=== PATIENT | female | born 1970 | race Asian ===

== ENCOUNTER 2016-06-03 08:36 | Emergency (ER) | payer MEDICAID ==
[~2016-06-03] VITALS: Ht 162.6 cm; Wt 86.0 kg
[~2016-06-03 08:36] MED LIST: ALBU18HF2 IH; ASPI-1035 PO; ATOR10TA PO; CARV25TA47 PO; CLON0.1T PO; DIVA-18 PO; FURO-151 PO; HYDR-4134 PO; HYDR-523 PO; KEPP500 PO; LISI-604 PO; LORA-249 PO; Levothyroxine Sodium PO; NIFE60TA64 PO; NITR0.4T3 SL; POLY17PO3 PO; TRAZ-132 PO; [UNRECOGNIZED DRUG - OTHER] PO
[2016-06-03] MEDS ORDERED: SODIUM CHLORIDE 0.9% 1,000 ML IV ONE (09:39)
[2016-06-03] MEDS ORDERED: MORPHINE SULFATE 4 MG/ML CPJ (NOT FOR IM USE) IV STA (09:39)
[2016-06-03] MEDS ORDERED: ONDANSETRON HCL 4MG/2ML VIAL IV STA (09:39)
[2016-06-03] MEDS ORDERED: CEPHALEXIN 500MG CAPSULE PO ONE (09:45)
[2016-06-03] MEDS ORDERED: KETOROLAC 30MG/ML VIAL IV ONE (09:45)
[2016-06-03] MEDS ORDERED: DEXAMETHASONE 10MG/ML 1ML VIAL IV ONE (09:45)
[2016-06-03 10:06] LABS: BASOPHILS % 0.7 % (0.0-2.0); EOSINOPHILS % 0.9 % (0.0-5.0); HEMATOCRIT. 38.9 % (36.0-48.0); HEMOGLOBIN. 12.7 g/dL (12.0-16.0); LYMPHOCYTES % 17.6 % (20.0-50.0); MEAN CORPUSCULAR HEMOGLOBIN 27.2 pg (28.0-32.0); MEAN CORPUSCULAR HGB CONC 32.7 g/dL (31.0-37.0); MEAN CORPUSCULAR VOLUME 83.2 fL (81.0-99.0); MEAN PLATELET VOLUME 7.8 fl (7.4-10.4); MONOCYTES % 6.3 % (2.0-8.0); NEUTROPHILS % 74.5 % (40.0-76.0); PLATELET 251 x1000/uL (130-400); RED BLOOD CELL COUNT 4.67 mill/uL (4.2-5.4); RED CELL DISTRIBUTION WIDTH 14.3 % (11.6-14.6); WHITE BLOOD COUNT 7.5 x1000/uL (4.5-11.0)
[2016-06-03 10:14] VITALS: BP 134/75
[2016-06-03 10:16] LABS: PARTIAL THROMBOPLASTIN TIME 27.1 sec (24.0-34.0); PROTHROMBIN TIME 10.3 sec
[2016-06-03 10:24] LABS: CLARITY URINE CLEAR (CLEAR); COLOR URINE YELLOW (YELLOW); GLUCOSE URINE NEGATIVE (NEGATIVE); KETONES URINE NEGATIVE (NEGATIVE); LEUKOCYTE ESTERASE URINE NEGATIVE (NEGATIVE); NITRITE URINE NEGATIVE (NEGATIVE); OCCULT BLOOD URINE NEGATIVE (NEGATIVE); PROTEIN URINE TRACE (NEGATIVE); SPECIFIC GRAVITY URINE 1.009 (1.005-1.030); UROBILINOGEN URINE 0.2 E.U./dL (0.2-1.0)
[2016-06-03 10:27] LABS: BACTERIA URINE NONE SEEN; CALCIUM PHOSPHATE CRYSTALS UR NONE SEEN /lpf; RBC URINE NONE SEEN /hpf (0-2); SQUAMOUS EPITHELIAL CELL URINE NONE SEEN /lpf (RARE/1+); WAXY CASTS URINE NONE SEEN /lpf; WBC URINE NONE SEEN /hpf (0-2); YEAST URINE NONE SEEN
== END 2016-06-03 10:33 | disposition left against medical advice (07) ==
LOC: ER 08:36
DX: R04.0 Epistaxis (principal); Z79.899 Other long term (current) drug therapy; J44.9 Chronic obstructive pulmonary disease, unspecified; I11.0 Hypertensive heart disease with heart failure; I50.9 Heart failure, unspecified
CPT/HCPCS: 36415; 81001; 85025; 85610; 85730; 99284; Z7610; J1100; J2270; J2405; J7030

== ENCOUNTER 2016-11-20 11:51 | Inpatient (IN) | payer MEDICARE, MEDICAID ==
[~2016-11-20] VITALS: Ht 165.1 cm; Wt 96.8 kg
[~2016-11-20 11:51] MED LIST changes: -ASPI-1035 PO; +ASPI-1159 PO; -NITR0.4T3 SL; +NITR0.4T49 SL
[2016-11-20] MEDS ORDERED: ONDANSETRON HCL 4MG/2ML VIAL IV STA (12:25)
[2016-11-20] MEDS ORDERED: MORPHINE SULFATE 4 MG/ML CPJ (NOT FOR IM USE) IV STA (12:25)
[2016-11-20 13:06] LABS: BASOPHILS % 0.9 % (0.0-2.0); EOSINOPHILS % 2.6 % (0.0-5.0); HEMATOCRIT. 34.9 % (36.0-48.0); HEMOGLOBIN. 11.7 g/dL (12.0-16.0); LYMPHOCYTES % 28.9 % (20.0-50.0); MEAN CORPUSCULAR HEMOGLOBIN 28.2 pg (28.0-32.0); MEAN CORPUSCULAR VOLUME 83.8 fL (81.0-99.0); MEAN PLATELET VOLUME 7.4 fl (7.4-10.4); MONOCYTES % 9.2 % (2.0-8.0); NEUTROPHILS % 58.4 % (40.0-76.0); PLATELET 184 x1000/uL (130-400); RED BLOOD CELL COUNT 4.16 mill/uL (4.2-5.4); RED CELL DISTRIBUTION WIDTH 14.7 % (11.6-14.6)
[2016-11-20 13:12] LABS: INR 0.9; PROTHROMBIN TIME 9.8 sec (9.4-11.6)
[2016-11-20 13:25] LABS: CARBON DIOXIDE 25 mEq/L (21-32); CHLORIDE 109 mEq/L (98-107)
[2016-11-20 13:35] LABS: TROPONIN I 0.63 ng/mL (0.00-0.04)
[2016-11-20] MEDS ORDERED: ASPIRIN 325MG EC TABLET PO ONE (17:30)
[2016-11-20] MEDS ORDERED: GUAIFENESIN 200MG/10ML SUGAR FREE UDC PO PRN (20:00)
[2016-11-20] MEDS ORDERED: HYDRALAZINE 20MG/ML VIAL IV PRN (20:00)
[2016-11-20] MEDS ORDERED: IPRATROPIUM/ALBUTEROL 0.5-3(2.5)MG/3ML NEB INH PRN (20:00)
[2016-11-20] MEDS ORDERED: ONDANSETRON HCL 4MG/2ML VIAL IV PRN (20:00)
[2016-11-20] MEDS ORDERED: MAGNESIUM HYDROXIDE 400MG/5ML 30ML UDC PO PRN (20:00)
[2016-11-20] MEDS ORDERED: MAGNESIUM/ALUMINUM HYDROXIDE/SIMETHICONE 30ML UDC PO PRN (20:00)
[2016-11-20] MEDS ORDERED: ZOLPIDEM TARTRATE 5MG TABLET PO PRN (20:00)
[2016-11-20] MEDS ORDERED: ACETAMINOPHEN 325MG TABLET PO PRN (20:00)
[2016-11-20] MEDS ORDERED: MORPHINE SULFATE 4 MG/ML CPJ (NOT FOR IM USE) IV PRN (20:00)
[2016-11-20] MEDS ORDERED: CLONIDINE 0.2MG TABLET PO PRN (20:00)
[2016-11-20] MEDS ORDERED: HYDROCODONE/ACETAMINOPHEN 5/325MG TABLET PO PRN (20:00)
[2016-11-20] MEDS ORDERED: IPRATROPIUM/ALBUTEROL 0.5-3(2.5)MG/3ML NEB HHN NR (20:00)
[2016-11-20] MEDS ORDERED: LORAZEPAM 0.5MG TABLET PO PRN (20:15)
[2016-11-20] MEDS ORDERED: HYDRALAZINE HCL 25MG TABLET PO NR (20:45)
[2016-11-20] MEDS ORDERED: TRAZODONE HCL 100MG TABLET PO NR (20:45)
[2016-11-20] MEDS ORDERED: LISINOPRIL 20MG TABLET PO NR (20:45)
[2016-11-20] MEDS ORDERED: NIFEDIPINE XL 60MG TAB PO NR (20:45)
[2016-11-20] MEDS ORDERED: CARVEDILOL 25MG TABLET PO NR (20:45)
[2016-11-20] MEDS ORDERED: ATORVASTATIN CALCIUM 40MG TABLET PO NR (20:45)
[2016-11-20] MEDS ORDERED: LEVETIRACETAM 500MG/5ML CUP PO NR (20:45)
[2016-11-20 20:49] LABS: *AMPHETAMINES SCREEN URINE PRESUMTIVE POSITIVE (NEGATIVE); *BARBITURATES SCREEN URINE NEGATIVE (NEGATIVE); *BENZODIAZEPINES SCREEN URINE NEGATIVE (NEGATIVE); *COCAINE SCREEN URINE NEGATIVE (NEGATIVE); CANNABINOID URINE SCREEN NEGATIVE (NEGATIVE); METHADONE URINE SCREEN NEGATIVE (NEGATIVE); OPIATES URINE SCREEN NEGATIVE (NEGATIVE); PHENCYCLIDINE URINE SCREEN NEGATIVE (NEGATIVE)
[2016-11-20 23:35] VITALS: BP 128/98
[2016-11-21] VITALS (7 sets, daily range): BP systolic 102–129; BP diastolic 64–76
[2016-11-21] MEDS: NIFEDIPINE XL 60MG TAB PO SCH ×2 (08:03→20:59)
[2016-11-21] MEDS: LEVETIRACETAM 500MG/5ML CUP PO SCH ×2 (08:03→20:58)
[2016-11-21] MEDS: DIVALPROEX SODIUM 500MG DR TABLET PO SCH ×2 (08:04→16:29)
[2016-11-21] MEDS: ASPIRIN 81MG EC TABLET PO SCH (08:04)
[2016-11-21] MEDS: HYDRALAZINE HCL 50MG TABLET PO SCH ×4 (08:04→20:59)
[2016-11-21] MEDS: LEVOTHYROXINE SODIUM 25MCG TABLET PO SCH (08:05)
[2016-11-21] MEDS: LISINOPRIL 20MG TABLET PO SCH ×2 (08:06→20:59)
[2016-11-21] MEDS ORDERED: CARVEDILOL 25MG TABLET PO SCH (09:00)
[2016-11-21] MEDS ORDERED: TRAZODONE HCL 100MG TABLET PO SCH (21:00)
[2016-11-21] MEDS: SODIUM CHLORIDE 0.9% INJ 3ML FLUSH IVF SCH (21:00)
[2016-11-21] MEDS ORDERED: ATORVASTATIN CALCIUM 40MG TABLET PO SCH (21:00)
[2016-11-22] VITALS: BP 131/80
[2016-11-22 04:00] VITALS: BP 109/58
[2016-11-22] MEDS: SODIUM CHLORIDE 0.9% INJ 3ML FLUSH IVF SCH ×2 (06:01→14:00)
[2016-11-22 08:00] VITALS: BP 115/66
[2016-11-22] MEDS ORDERED: INFLUENZA VIRUS VACCINE 0.5ML SYR IM ONE (08:00)
[2016-11-22] MEDS: HYDRALAZINE HCL 50MG TABLET PO SCH ×2 (08:49→13:00)
[2016-11-22] MEDS: ASPIRIN 81MG EC TABLET PO SCH (08:49)
[2016-11-22] MEDS: LEVOTHYROXINE SODIUM 25MCG TABLET PO SCH (08:50)
[2016-11-22] MEDS: DIVALPROEX SODIUM 500MG DR TABLET PO SCH (08:50)
[2016-11-22] MEDS: NIFEDIPINE XL 60MG TAB PO SCH (08:50)
[2016-11-22] MEDS: LEVETIRACETAM 500MG/5ML CUP PO SCH (08:51)
[2016-11-22] MEDS: LISINOPRIL 20MG TABLET PO SCH (08:51)
[2016-11-22 12:00] VITALS: BP 110/67
== END 2016-11-22 14:20 | disposition home or self-care (01) | DRG 291 ==
LOC: ER 12:03 → 7WST 13:39 → EDBEDREQ 18:49 → ENRESERV 22:29
PROVIDERS: ADMIT Internal Medicine; ATTEND Internal Medicine
DX: I13.0 Hypertensive heart and chronic kidney disease with heart failure and stage 1 through stage 4 chronic kidney disease, or unspecified chronic kidney disease (principal); E43 Unspecified severe protein-calorie malnutrition; R07.89 Other chest pain; I25.2 Old myocardial infarction; I50.9 Heart failure, unspecified; N18.9 Chronic kidney disease, unspecified; D64.9 Anemia, unspecified; E03.9 Hypothyroidism, unspecified; E78.5 Hyperlipidemia, unspecified; F15.90 Other stimulant use, unspecified, uncomplicated; G40.909 Epilepsy, unspecified, not intractable, without status epilepticus; Z82.49 Family history of ischemic heart disease and other diseases of the circulatory system; Z86.73 Personal history of transient ischemic attack (TIA), and cerebral infarction without residual deficits; Z91.14 Patient's other noncompliance with medication regimen
CPT/HCPCS: 36415; 70450; 71010; 80053; 80165; 80305; 81025; 83735; 83880; 84484; 85025; 85610; 93005; 96374; 96375; 99291; J2270; J2405; J7040

== ENCOUNTER 2017-01-12 17:01 | Inpatient (IN) | payer MEDICARE, MEDICAID ==
[~2017-01-12] VITALS: Ht 162.6 cm; Wt 97.1 kg
[2017-01-12] MEDS ORDERED: CLONIDINE 0.1MG TABLET PO ONE (19:15)
[2017-01-12 19:44] LABS: BASOPHILS % 0.7 % (0.0-2.0); EOSINOPHILS % 2.2 % (0.0-5.0); HEMATOCRIT. 36.7 % (36.0-48.0); HEMOGLOBIN. 12.5 g/dL (12.0-16.0); LYMPHOCYTES % 26.6 % (20.0-50.0); MEAN CORPUSCULAR HEMOGLOBIN 28.4 pg (28.0-32.0); MEAN CORPUSCULAR VOLUME 83.6 fL (81.0-99.0); MEAN PLATELET VOLUME 8.2 fl (7.4-10.4); MONOCYTES % 8.4 % (2.0-8.0); NEUTROPHILS % 62.1 % (40.0-76.0); PLATELET 200 x1000/uL (130-400); RED BLOOD CELL COUNT 4.39 mill/uL (4.2-5.4); RED CELL DISTRIBUTION WIDTH 14.4 % (11.6-14.6)
[2017-01-12 19:47] LABS: PROTHROMBIN TIME 10.4 sec (9.4-11.6)
[2017-01-12 19:53] LABS: CARBON DIOXIDE 23 mEq/L (21-32); CHLORIDE 108 mEq/L (98-107)
[2017-01-12 20:54] LABS: *AMPHETAMINES SCREEN URINE NEGATIVE (NEGATIVE); *BARBITURATES SCREEN URINE NEGATIVE (NEGATIVE); *BENZODIAZEPINES SCREEN URINE NEGATIVE (NEGATIVE); *COCAINE SCREEN URINE NEGATIVE (NEGATIVE); CANNABINOID URINE SCREEN NEGATIVE (NEGATIVE); METHADONE URINE SCREEN NEGATIVE (NEGATIVE); OPIATES URINE SCREEN NEGATIVE (NEGATIVE); PHENCYCLIDINE URINE SCREEN NEGATIVE (NEGATIVE)
[2017-01-12] MEDS ORDERED: ACETAMINOPHEN 325MG TABLET PO ONE (21:15)
[2017-01-12] MEDS ORDERED: ASPIRIN 325MG TABLET PO ONE (22:15)
[2017-01-12] MEDS ORDERED: HYDRALAZINE 20MG/ML VIAL IV ONE ×2 (22:45→23:00)
[2017-01-12] MEDS ORDERED: ONDANSETRON HCL 4MG/2ML VIAL IV PRN (23:30)
[2017-01-12] MEDS ORDERED: MAGNESIUM/ALUMINUM HYDROXIDE/SIMETHICONE 30ML UDC PO PRN (23:30)
[2017-01-12] MEDS ORDERED: IPRATROPIUM/ALBUTEROL 0.5-3(2.5)MG/3ML NEB INH PRN (23:30)
[2017-01-12] MEDS ORDERED: HYDROCODONE/ACETAMINOPHEN 5/325MG TABLET PO PRN (23:30)
[2017-01-12] MEDS ORDERED: CLONIDINE 0.1MG TABLET PO PRN (23:30)
[2017-01-13] VITALS (11 sets, daily range): BP systolic 112–191; BP diastolic 68–102
[2017-01-13] MEDS: NIFEDIPINE XL 60MG TAB PO SCH ×2 (03:21→08:06)
[2017-01-13] MEDS: HYDRALAZINE HCL 50MG TABLET PO SCH ×3 (06:20→21:31)
[2017-01-13 06:39] LABS: BASOPHILS % 0.4 % (0.0-2.0); HEMATOCRIT. 35.9 % (36.0-48.0); HEMOGLOBIN. 12.1 g/dL (12.0-16.0); LYMPHOCYTES % 10.3 % (20.0-50.0); MEAN CORPUSCULAR HEMOGLOBIN 28.2 pg (28.0-32.0); MEAN CORPUSCULAR VOLUME 83.7 fL (81.0-99.0); MEAN PLATELET VOLUME 8.7 fl (7.4-10.4); MONOCYTES % 2.6 % (2.0-8.0); NEUTROPHILS % 86.7 % (40.0-76.0); PLATELET 195 x1000/uL (130-400); RED BLOOD CELL COUNT 4.28 mill/uL (4.2-5.4); RED CELL DISTRIBUTION WIDTH 14.8 % (11.6-14.6)
[2017-01-13 07:35] LABS: CREATINE KINASE MB FRACTION 3.5 ng/mL (0.5-3.6)
[2017-01-13] MEDS: LEVETIRACETAM 500MG TABLET PO SCH ×2 (08:05→21:31)
[2017-01-13] MEDS: ASPIRIN 81MG EC TABLET PO SCH (08:07)
[2017-01-13] MEDS: ENOXAPARIN 30MG/0.3ML SYR SUBCUT SCH ×2 (08:08→21:31)
[2017-01-13 08:09] LABS: TROPONIN I 1.6 ng/mL (0.00-0.04)
[2017-01-13] MEDS: ACETAMINOPHEN 325MG TABLET PO PRN ×2 (08:47→22:41)
[2017-01-13] MEDS: LISINOPRIL 20MG TABLET PO SCH ×2 (11:00→21:31)
[2017-01-13] MEDS ORDERED: INFLUENZA VIRUS VACCINE 0.5ML SYR IM ONE (11:00)
[2017-01-13] MEDS ORDERED: POTASSIUM CHLORIDE 20MEQ TABLET SR PO NR (12:00)
[2017-01-13] MEDS: CARVEDILOL 25MG TABLET PO SCH ×2 (12:19→21:31)
[2017-01-13 13:17] LABS: CLARITY URINE CLEAR (CLEAR); COLOR URINE YELLOW (YELLOW); GLUCOSE URINE NEGATIVE (NEGATIVE); KETONES URINE NEGATIVE (NEGATIVE); LEUKOCYTE ESTERASE URINE NEGATIVE (NEGATIVE); NITRITE URINE NEGATIVE (NEGATIVE); OCCULT BLOOD URINE NEGATIVE (NEGATIVE); PROTEIN URINE 2+ (NEGATIVE); SPECIFIC GRAVITY URINE 1.015 (1.005-1.030); UROBILINOGEN URINE 0.2 E.U./dL (0.2-1.0)
[2017-01-13 16:08] LABS: CREATINE KINASE MB FRACTION 3.3 ng/mL (0.5-3.6)
[2017-01-13 16:36] LABS: TROPONIN I 1.7 ng/mL (0.00-0.04)
[2017-01-13] MEDS ORDERED: ATORVASTATIN CALCIUM 20MG TABLET PO SCH (21:00)
[2017-01-14] VITALS (9 sets, daily range): BP systolic 108–150; BP diastolic 61–81
[2017-01-14 06:49] LABS: EOSINOPHILS % 3.1 % (0.0-5.0); HEMATOCRIT. 36.5 % (36.0-48.0); HEMOGLOBIN. 12.1 g/dL (12.0-16.0); MEAN CORPUSCULAR VOLUME 84.7 fL (81.0-99.0); MEAN PLATELET VOLUME 8.6 fl (7.4-10.4); MONOCYTES % 8.7 % (2.0-8.0); NEUTROPHILS % 57.2 % (40.0-76.0); PLATELET 208 x1000/uL (130-400); RED BLOOD CELL COUNT 4.31 mill/uL (4.2-5.4); RED CELL DISTRIBUTION WIDTH 14.8 % (11.6-14.6)
[2017-01-14] MEDS: HYDRALAZINE HCL 50MG TABLET PO SCH ×2 (07:14→13:49)
[2017-01-14] MEDS: ENOXAPARIN 30MG/0.3ML SYR SUBCUT SCH (08:44)
[2017-01-14] MEDS: LEVETIRACETAM 500MG TABLET PO SCH (08:45)
[2017-01-14] MEDS: NIFEDIPINE XL 60MG TAB PO SCH (08:45)
[2017-01-14] MEDS: ASPIRIN 81MG EC TABLET PO SCH (08:45)
[2017-01-14] MEDS: CARVEDILOL 25MG TABLET PO SCH (08:46)
[2017-01-14] MEDS: LISINOPRIL 20MG TABLET PO SCH (08:46)
[2017-01-14] MEDS: ACETAMINOPHEN 325MG TABLET PO PRN (08:59)
[2017-01-14 09:16] LABS: TROPONIN I 1.5 ng/mL (0.00-0.04)
[2017-01-14] MEDS ORDERED: SERT50TA PO (12:23)
== END 2017-01-14 14:46 | disposition home or self-care (01) | DRG 281 ==
LOC: ER 18:14 → 3WST 19:11 → EDBEDREQ 23:00
PROVIDERS: ADMIT Internal Medicine; ATTEND Internal Medicine
DX: I21.4 Non-ST elevation (NSTEMI) myocardial infarction (principal); I13.0 Hypertensive heart and chronic kidney disease with heart failure and stage 1 through stage 4 chronic kidney disease, or unspecified chronic kidney disease; I50.9 Heart failure, unspecified; I69.354 Hemiplegia and hemiparesis following cerebral infarction affecting left non-dominant side; I25.10 Atherosclerotic heart disease of native coronary artery without angina pectoris; N18.9 Chronic kidney disease, unspecified; E03.9 Hypothyroidism, unspecified; E78.5 Hyperlipidemia, unspecified; G40.909 Epilepsy, unspecified, not intractable, without status epilepticus; Z79.82 Long term (current) use of aspirin; Z90.49 Acquired absence of other specified parts of digestive tract; Z91.018 Allergy to other foods; I25.2 Old myocardial infarction; Z79.899 Other long term (current) drug therapy; Z90.721 Acquired absence of ovaries, unilateral
CPT/HCPCS: 36415; 70450; 71010; 80048; 80053; 80061; 80305; 81001; 81025; 82550; 82553; 83735; 84443; 84484; 85025; 85610; 90686; 93005; 93970; 96374; 96376; 99291; J0360; J1650; J2405

== ENCOUNTER 2017-09-20 13:24 | Emergency (ER) | payer MEDICARE, MEDICAID ==
[~2017-09-20] VITALS: Ht 157.5 cm; Wt 91.0 kg
[~2017-09-20 13:24] MED LIST changes: +SERT50TA PO
[2017-09-20] MEDS ORDERED: ONDANSETRON HCL 4MG/2ML VIAL IV STA (14:44)
[2017-09-20] MEDS ORDERED: MORPHINE SULFATE 4 MG/ML CPJ (NOT FOR IM USE) IV STA (14:44)
[2017-09-20] MEDS ORDERED: CLONIDINE 0.2MG TABLET PO ONE (14:45)
[2017-09-20 14:56] LABS: CLARITY URINE CLEAR (CLEAR); COLOR URINE YELLOW (YELLOW); KETONES URINE NEGATIVE (NEGATIVE); LEUKOCYTE ESTERASE URINE 1+ (NEGATIVE); NITRITE URINE NEGATIVE (NEGATIVE); OCCULT BLOOD URINE TRACE (NEGATIVE); PROTEIN URINE 3+ (NEGATIVE); SPECIFIC GRAVITY URINE 1.013 (1.005-1.030); UROBILINOGEN URINE 0.2 E.U./dL (0.2-1.0)
[2017-09-20 15:04] LABS: *AMPHETAMINES SCREEN URINE NEGATIVE (NEGATIVE); *BARBITURATES SCREEN URINE NEGATIVE (NEGATIVE); BASOPHILS % 0.7 % (0.0-2.0); EOSINOPHILS % 1.5 % (0.0-5.0); HEMOGLOBIN. 11.9 g/dL (12.0-16.0); LYMPHOCYTES % 21.2 % (20.0-50.0); MEAN CORPUSCULAR HEMOGLOBIN 27.4 pg (28.0-32.0); MEAN PLATELET VOLUME 8.3 fl (7.4-10.4); MONOCYTES % 7.6 % (2.0-8.0); PLATELET 255 x1000/uL (130-400); RED BLOOD CELL COUNT 4.34 mill/uL (4.2-5.4)
[2017-09-20 15:05] LABS: *BENZODIAZEPINES SCREEN URINE NEGATIVE (NEGATIVE); *COCAINE SCREEN URINE NEGATIVE (NEGATIVE); CANNABINOID URINE SCREEN NEGATIVE (NEGATIVE); METHADONE URINE SCREEN NEGATIVE (NEGATIVE); OPIATES URINE SCREEN NEGATIVE (NEGATIVE); PHENCYCLIDINE URINE SCREEN NEGATIVE (NEGATIVE)
[2017-09-20 15:08] LABS: CHLORIDE 108 mEq/L (98-107); PROTHROMBIN TIME 10.5 sec (9.4-11.6)
[2017-09-20 15:12] LABS: ETHANOL BLOOD < 10 mg/dL
[2017-09-20 15:16] LABS: CREATINE KINASE 108 IU/L (26-192)
[2017-09-20 15:20] LABS: PHENOBARBITAL < 2.1 ug/mL (15.0-40.0)
[2017-09-20 15:25] LABS: CARBAMAZEPINE < 0.5 ug/mL (4-12)
[2017-09-20] MEDS ORDERED: HYDRALAZINE 20MG/ML VIAL IV ONE (16:15)
[2017-09-20 19:25] VITALS: BP 165/104
== END 2017-09-20 19:38 | disposition home or self-care (01) ==
LOC: ER 14:01 → EDBEDREQ 14:49 → ER 19:38 → CANBEDREQ 19:59
DX: S80.00XA Contusion of unspecified knee, initial encounter (principal); S90.00XA Contusion of unspecified ankle, initial encounter; W06.XXXA Fall from bed, initial encounter; R41.82 Altered mental status, unspecified; R79.89 Other specified abnormal findings of blood chemistry; I12.9 Hypertensive chronic kidney disease with stage 1 through stage 4 chronic kidney disease, or unspecified chronic kidney disease; N18.9 Chronic kidney disease, unspecified; I50.9 Heart failure, unspecified; F32.9 Major depressive disorder, single episode, unspecified; R56.9 Unspecified convulsions; Y93.89 Activity, other specified; Y92.9 Unspecified place or not applicable; Z98.62 Peripheral vascular angioplasty status
CPT/HCPCS: 36415; 70450; 71045; 80053; 80156; 80165; 80184; 80185; 80305; 81003; 82550; 83880; 84443; 84484; 85025; 85610; 93005; 96374; 96375; 99285; G0482; J0360; J2270; J2405

== ENCOUNTER 2018-02-05 15:58 | Inpatient (IN) | payer MEDICARE, MEDICAID ==
[~2018-02-05] VITALS: Ht 165.1 cm; Wt 91.2 kg
[~2018-02-05 15:58] MED LIST changes: -TRAZ-132 PO; +TRAZ-213 PO
[2018-02-05] MEDS ORDERED: LABETALOL 5MG/ML SYR 20 MG/4 ML SYRINGE IV ONE (23:30)
[2018-02-05] MEDS ORDERED: ASPIRIN 81MG TABLET PO ONE (23:30)
[2018-02-05] MEDS ORDERED: NITROGLYCERIN OINT 1GM/INCH UDPKT TD ONE (23:30)
[2018-02-05] MEDS ORDERED: LABETALOL HCL 20MG/4ML CARPUJECT IV SCH (23:45)
[2018-02-06] VITALS (9 sets, daily range): BP systolic 121–188; BP diastolic 73–136
[2018-02-06 00:10] LABS: BASOPHILS % 0.6 % (0.0-2.0); EOSINOPHILS % 2.3 % (0.0-5.0); HEMATOCRIT. 34.6 % (36.0-48.0); HEMOGLOBIN. 11.4 g/dL (12.0-16.0); LYMPHOCYTES % 20.8 % (20.0-50.0); MEAN CORPUSCULAR HEMOGLOBIN 27.9 pg (28.0-32.0); MEAN CORPUSCULAR VOLUME 84.6 fL (81.0-99.0); MEAN PLATELET VOLUME 8.3 fl (7.4-10.4); MONOCYTES % 7.2 % (2.0-8.0); NEUTROPHILS % 69.1 % (40.0-76.0); PLATELET 241 x1000/uL (130-400); RED BLOOD CELL COUNT 4.09 mill/uL (4.2-5.4); RED CELL DISTRIBUTION WIDTH 15.3 % (11.6-14.6)
[2018-02-06 00:23] LABS: CHLORIDE 107 mEq/L (98-107)
[2018-02-06 00:25] LABS: HCG SCREEN NEGATIVE
[2018-02-06 01:09] LABS: CLARITY URINE CLEAR (CLEAR); COLOR URINE YELLOW (YELLOW); KETONES URINE NEGATIVE (NEGATIVE); LEUKOCYTE ESTERASE URINE NEGATIVE (NEGATIVE); NITRITE URINE NEGATIVE (NEGATIVE); OCCULT BLOOD URINE 1+ (NEGATIVE); PH URINE 5.5 (4.5-8.0); PROTEIN URINE 3+ (NEGATIVE); SPECIFIC GRAVITY URINE 1.012 (1.005-1.030); UROBILINOGEN URINE 0.2 E.U./dL (0.2-1.0)
[2018-02-06] MEDS ORDERED: MORPHINE SULFATE 2 MG/ML CPJ (NOT FOR IM USE) IV SCH (01:30)
[2018-02-06] MEDS ORDERED: MORPHINE SULFATE 4 MG/ML CPJ (NOT FOR IM USE) IV ONE (01:30)
[2018-02-06 01:39] LABS: PHENCYCLIDINE URINE SCREEN NEGATIVE (NEGATIVE)
[2018-02-06 01:40] LABS: *BARBITURATES SCREEN URINE NEGATIVE (NEGATIVE); *BENZODIAZEPINES SCREEN URINE NEGATIVE (NEGATIVE); *COCAINE SCREEN URINE NEGATIVE (NEGATIVE); CANNABINOID URINE SCREEN NEGATIVE (NEGATIVE); METHADONE URINE SCREEN NEGATIVE (NEGATIVE); OPIATES URINE SCREEN NEGATIVE (NEGATIVE)
[2018-02-06 01:47] LABS: *AMPHETAMINES SCREEN URINE PRESUMTIVE POSITIVE (NEGATIVE)
[2018-02-06] MEDS ORDERED: HYDRALAZINE 20MG/ML VIAL IV SCH (01:52)
[2018-02-06] MEDS ORDERED: LORAZEPAM 0.5MG TABLET PO PRN (05:00)
[2018-02-06] MEDS ORDERED: CLONIDINE 0.1MG TABLET PO PRN ×2 (05:00→05:30)
[2018-02-06] MEDS ORDERED: NITROGLYCERIN 0.4MG TABLET SL SL PRN ×2 (05:30→05:45)
[2018-02-06] MEDS ORDERED: ALBUTEROL (0.5%) 2.5MG/0.5ML NEB HHN PRN (05:45)
[2018-02-06] MEDS ORDERED: NON FORMULARY PATIENT HOME MED ORI PRN (06:15)
[2018-02-06] MEDS: HYDROCODONE/ACETAMINOPHEN 5/325MG TABLET PO PRN (06:17)
[2018-02-06] MEDS: HYDRALAZINE HCL 50MG TABLET PO SCH ×3 (06:17→21:30)
[2018-02-06] MEDS: LEVOTHYROXINE SODIUM 25MCG TABLET PO SCH (06:19)
[2018-02-06] MEDS ORDERED: INFLUENZA VIRUS VACCINE(AFLURIA) 0.5ML SYR IM ONE (08:00)
[2018-02-06] MEDS ORDERED: PNEUMOCOCCAL 23-VAL P-SAC VAC 0.5 ML IM ONE (08:00)
[2018-02-06] MEDS: DIVALPROEX SODIUM 500MG ER TABLET PO SCH ×2 (08:41→17:26)
[2018-02-06] MEDS: LISINOPRIL 20MG TABLET PO SCH ×2 (08:42→21:30)
[2018-02-06] MEDS: SERTRALINE HCL 50MG TABLET PO SCH (08:42)
[2018-02-06] MEDS: ASPIRIN 81MG TABLET PO SCH (08:42)
[2018-02-06] MEDS: CARVEDILOL 25MG TABLET PO SCH ×2 (08:43→21:29)
[2018-02-06] MEDS ORDERED: ALBUTEROL (0.083%) 2.5MG/3ML NEB HHN PRN (09:45)
[2018-02-06] MEDS: LEVETIRACETAM 500MG TABLET PO SCH ×2 (11:08→17:26)
[2018-02-06] MEDS: ONDANSETRON HCL 4MG/2ML INJ IV PRN (11:08)
[2018-02-06 11:14] LABS: BASOPHILS % 0.4 % (0.0-2.0); EOSINOPHILS % 2.1 % (0.0-5.0); HEMATOCRIT. 31.6 % (36.0-48.0); HEMOGLOBIN. 10.6 g/dL (12.0-16.0); LYMPHOCYTES % 17.3 % (20.0-50.0); MEAN CORPUSCULAR HEMOGLOBIN 28.4 pg (28.0-32.0); MEAN CORPUSCULAR VOLUME 84.5 fL (81.0-99.0); MEAN PLATELET VOLUME 8.1 fl (7.4-10.4); MONOCYTES % 7.9 % (2.0-8.0); NEUTROPHILS % 72.3 % (40.0-76.0); PLATELET 225 x1000/uL (130-400); RED BLOOD CELL COUNT 3.74 mill/uL (4.2-5.4); RED CELL DISTRIBUTION WIDTH 14.8 % (11.6-14.6)
[2018-02-06 11:32] LABS: CHLORIDE 107 mEq/L (98-107)
[2018-02-06 11:45] LABS: LDL CHOLESTEROL 83 mg/dL (5-100)
[2018-02-06 11:47] LABS: HDL CHOLESTEROL 40 mg/dL (40-59)
[2018-02-06 12:50] LABS: FOLIC ACID (FOLATE) SERUM 8.2 ng/mL (>5.38)
[2018-02-06 14:29] LABS: PHOSPHORUS 5.2 mg/dL (2.5-4.9)
[2018-02-06] MEDS: FUROSEMIDE 20MG TABLET PO SCH (16:42)
[2018-02-06 16:43] LABS: D-DIMER 2.28 mg/L FEU (<0.50); PROTHROMBIN TIME 10.3 sec (9.1-11.1)
[2018-02-06 16:58] LABS: CREATINE KINASE MB FRACTION 4.1 ng/mL (0.5-3.6)
[2018-02-06] MEDS: ATORVASTATIN CALCIUM 40MG TABLET PO SCH (21:29)
[2018-02-06] MEDS: TRAZODONE HCL 100MG TABLET PO SCH (21:29)
[2018-02-06] MEDS: POLYETHYLENE GLYCOL 3350 (17GM) 1 DOSE PACK PO SCH (21:30)
[2018-02-07] VITALS (10 sets, daily range): BP systolic 106–139; BP diastolic 65–93
[2018-02-07] MEDS: LEVOTHYROXINE SODIUM 25MCG TABLET PO SCH (05:32)
[2018-02-07] MEDS: HYDRALAZINE HCL 50MG TABLET PO SCH ×3 (05:32→23:36)
[2018-02-07 06:25] LABS: BASOPHILS % 0.7 % (0.0-2.0); EOSINOPHILS % 2.9 % (0.0-5.0); HEMATOCRIT. 30.6 % (36.0-48.0); HEMOGLOBIN. 10.2 g/dL (12.0-16.0); LYMPHOCYTES % 24.3 % (20.0-50.0); MEAN CORPUSCULAR HEMOGLOBIN 28.7 pg (28.0-32.0); MEAN CORPUSCULAR VOLUME 85.7 fL (81.0-99.0); MEAN PLATELET VOLUME 8.3 fl (7.4-10.4); MONOCYTES % 7.5 % (2.0-8.0); NEUTROPHILS % 64.6 % (40.0-76.0); PLATELET 215 x1000/uL (130-400); RED BLOOD CELL COUNT 3.57 mill/uL (4.2-5.4); RED CELL DISTRIBUTION WIDTH 14.7 % (11.6-14.6)
[2018-02-07] MEDS: CARVEDILOL 25MG TABLET PO SCH ×2 (09:54→21:42)
[2018-02-07] MEDS: FUROSEMIDE 20MG TABLET PO SCH (09:54)
[2018-02-07] MEDS: SERTRALINE HCL 50MG TABLET PO SCH (09:55)
[2018-02-07] MEDS: LISINOPRIL 20MG TABLET PO SCH ×2 (09:55→21:42)
[2018-02-07] MEDS: LEVETIRACETAM 500MG TABLET PO SCH ×2 (09:55→18:12)
[2018-02-07] MEDS: DIVALPROEX SODIUM 500MG ER TABLET PO SCH ×2 (09:55→18:12)
[2018-02-07] MEDS: ASPIRIN 81MG TABLET PO SCH (09:55)
[2018-02-07] MEDS: HYDROCODONE/ACETAMINOPHEN 5/325MG TABLET PO PRN (12:21)
[2018-02-07] MEDS ORDERED: BISACODYL 5MG TABLET PO PRN (17:45)
[2018-02-07] MEDS: SEVELAMER CARBONATE 800 MG TABLET PO SCH (18:12)
[2018-02-07] MEDS: LACTULOSE 20G/30ML UDC PO NR (18:12)
[2018-02-07] MEDS: POLYETHYLENE GLYCOL 3350 (17GM) 1 DOSE PACK PO SCH (21:00)
[2018-02-07] MEDS: ATORVASTATIN CALCIUM 40MG TABLET PO SCH (21:33)
[2018-02-07] MEDS: TRAZODONE HCL 100MG TABLET PO SCH (21:34)
[2018-02-08] VITALS (9 sets, daily range): BP systolic 110–133; BP diastolic 70–87
[2018-02-08 06:18] LABS: BASOPHILS % 0.7 % (0.0-2.0); EOSINOPHILS % 2.4 % (0.0-5.0); HEMATOCRIT. 32.2 % (36.0-48.0); HEMOGLOBIN. 10.6 g/dL (12.0-16.0); LYMPHOCYTES % 21.4 % (20.0-50.0); MEAN CORPUSCULAR HEMOGLOBIN 28.3 pg (28.0-32.0); MEAN CORPUSCULAR VOLUME 85.9 fL (81.0-99.0); MEAN PLATELET VOLUME 8.4 fl (7.4-10.4); MONOCYTES % 8.5 % (2.0-8.0); PLATELET 223 x1000/uL (130-400); RED BLOOD CELL COUNT 3.74 mill/uL (4.2-5.4); RED CELL DISTRIBUTION WIDTH 14.7 % (11.6-14.6)
[2018-02-08 06:24] LABS: T4 FREE 1.2 ng/dL (0.76-1.46)
[2018-02-08] MEDS: LEVOTHYROXINE SODIUM 25MCG TABLET PO SCH (06:24)
[2018-02-08] MEDS: HYDRALAZINE HCL 50MG TABLET PO SCH ×3 (06:24→21:06)
[2018-02-08] MEDS: SERTRALINE HCL 50MG TABLET PO SCH (08:28)
[2018-02-08] MEDS: SEVELAMER CARBONATE 800 MG TABLET PO SCH ×3 (08:28→18:00)
[2018-02-08] MEDS: CARVEDILOL 25MG TABLET PO SCH ×2 (08:33→21:05)
[2018-02-08] MEDS: LISINOPRIL 20MG TABLET PO SCH ×2 (08:34→21:05)
[2018-02-08] MEDS: LEVETIRACETAM 500MG TABLET PO SCH ×2 (08:34→19:21)
[2018-02-08] MEDS: ASPIRIN 81MG TABLET PO SCH (08:34)
[2018-02-08] MEDS: FUROSEMIDE 20MG TABLET PO SCH (08:34)
[2018-02-08] MEDS: DIVALPROEX SODIUM 500MG ER TABLET PO SCH ×2 (08:35→19:21)
[2018-02-08] MEDS ORDERED: CITRIC ACID/SODIUM CITRATE SOLN 15ML UDC PO SCH (09:00)
[2018-02-08] MEDS: ONDANSETRON HCL 4MG/2ML INJ IV PRN (12:18)
[2018-02-08] MEDS: HYDROCODONE/ACETAMINOPHEN 5/325MG TABLET PO PRN (12:24)
[2018-02-08] MEDS ORDERED: HYDR-4135 MT (14:09)
[2018-02-08] MEDS ORDERED: FURO20TA4 PO (14:09)
[2018-02-08] MEDS ORDERED: CITR473S PO (14:09)
[2018-02-08] MEDS: LACTULOSE 20G/30ML UDC PO NR (18:20)
[2018-02-08] MEDS: ATORVASTATIN CALCIUM 40MG TABLET PO SCH (21:06)
[2018-02-08] MEDS: POLYETHYLENE GLYCOL 3350 (17GM) 1 DOSE PACK PO SCH (21:07)
[2018-02-08] MEDS: TRAZODONE HCL 100MG TABLET PO SCH (21:07)
== END 2018-02-08 21:36 | disposition home or self-care (01) | DRG 291 ==
LOC: ER 15:58 → 5EST 02-06 01:34 → EDBEDREQTM 02-06 01:38 → EDBEDREQ 02-06 01:38 → EDBEDREQDT 02-06 01:38 → EDBEDREQSVC 02-06 01:38 → ENRESERV 02-06 02:33
PROVIDERS: ADMIT Internal Medicine; ATTEND Internal Medicine
DX: I13.0 Hypertensive heart and chronic kidney disease with heart failure and stage 1 through stage 4 chronic kidney disease, or unspecified chronic kidney disease (principal); I50.43 Acute on chronic combined systolic (congestive) and diastolic (congestive) heart failure; I16.1 Hypertensive emergency; N17.9 Acute kidney failure, unspecified; E87.2 Acidosis; N18.4 Chronic kidney disease, stage 4 (severe); I69.354 Hemiplegia and hemiparesis following cerebral infarction affecting left non-dominant side; I42.9 Cardiomyopathy, unspecified; E87.6 Hypokalemia; E03.9 Hypothyroidism, unspecified; E11.22 Type 2 diabetes mellitus with diabetic chronic kidney disease; D63.8 Anemia in other chronic diseases classified elsewhere; D50.9 Iron deficiency anemia, unspecified; E83.39 Other disorders of phosphorus metabolism; F15.90 Other stimulant use, unspecified, uncomplicated; F41.9 Anxiety disorder, unspecified; J45.909 Unspecified asthma, uncomplicated; G40.909 Epilepsy, unspecified, not intractable, without status epilepticus; K59.00 Constipation, unspecified; Z82.49 Family history of ischemic heart disease and other diseases of the circulatory system; Z91.19 Patient's noncompliance with other medical treatment and regimen; Z79.82 Long term (current) use of aspirin; Z79.51 Long term (current) use of inhaled steroids; Z79.899 Other long term (current) drug therapy; Z90.49 Acquired absence of other specified parts of digestive tract
CPT/HCPCS: 36415; 71045; 74018; 76770; 80048; 80061; 80305; 82550; 82553; 82607; 82728; 82746; 83036; 83540; 83550; 83735; 83880; 84100; 84439; 84443; 84481; 84484; 84703; 85379; 93005; 93306; 96374; 99291; J0360; J2270; J2405; J3490

== ENCOUNTER 2018-04-05 13:24 | Inpatient (IN) | payer MEDICARE, MEDICAID ==
[~2018-04-05] VITALS: Ht 162.6 cm; Wt 89.8 kg
[~2018-04-05 13:24] MED LIST changes: +CITR473S PO; -CLON0.1T PO; -FURO-151 PO; +FURO20TA4 PO; -HYDR-4134 PO; +HYDR-4135 MT; -HYDR-523 PO; -LISI-604 PO; -NIFE60TA64 PO; -NITR0.4T49 SL; -POLY17PO3 PO; -[UNRECOGNIZED DRUG - OTHER] PO
[2018-04-05] MEDS ORDERED: ACETAMINOPHEN 325MG TABLET PO ONE (21:00)
[2018-04-05 21:39] LABS: BASOPHILS % 0.6 % (0.0-2.0); EOSINOPHILS % 2.6 % (0.0-5.0); HEMATOCRIT. 36.5 % (36.0-48.0); HEMOGLOBIN. 11.7 g/dL (12.0-16.0); LYMPHOCYTES % 33.2 % (20.0-50.0); MEAN CORPUSCULAR HEMOGLOBIN 27.1 pg (28.0-32.0); MEAN CORPUSCULAR VOLUME 84.6 fL (81.0-99.0); MEAN PLATELET VOLUME 9.5 fl (7.4-10.4); MONOCYTES % 11.7 % (2.0-8.0); NEUTROPHILS % 51.9 % (40.0-76.0); PLATELET 85 x1000/uL (130-400); RED BLOOD CELL COUNT 4.32 mill/uL (4.2-5.4); RED CELL DISTRIBUTION WIDTH 15.2 % (11.6-14.6)
[2018-04-05 21:43] LABS: CHLORIDE 105 mEq/L (98-107); HCG SCREEN NEGATIVE
[2018-04-05 21:46] LABS: INR 1.1; PROTHROMBIN TIME 10.6 sec (9.1-11.1)
[2018-04-05] MEDS ORDERED: CLONIDINE 0.1MG TABLET PO PRN (22:30)
[2018-04-05] MEDS ORDERED: ACETAMINOPHEN 325MG TABLET PO PRN (22:30)
[2018-04-05] MEDS ORDERED: DOCUSATE SODIUM 100MG CAPSULE PO PRN (22:30)
[2018-04-05] MEDS ORDERED: ONDANSETRON HCL 4MG/2ML INJ IV PRN (22:30)
[2018-04-05 22:36] LABS: CLARITY URINE CLEAR (CLEAR); COLOR URINE YELLOW (YELLOW); KETONES URINE NEGATIVE (NEGATIVE); LEUKOCYTE ESTERASE URINE 1+ (NEGATIVE); NITRITE URINE NEGATIVE (NEGATIVE); OCCULT BLOOD URINE NEGATIVE (NEGATIVE); PROTEIN URINE 2+ (NEGATIVE); SPECIFIC GRAVITY URINE 1.011 (1.005-1.030); UROBILINOGEN URINE 0.2 E.U./dL (0.2-1.0)
[2018-04-05 22:54] LABS: *AMPHETAMINES SCREEN URINE NEGATIVE (NEGATIVE); *BARBITURATES SCREEN URINE NEGATIVE (NEGATIVE); *BENZODIAZEPINES SCREEN URINE NEGATIVE (NEGATIVE); *COCAINE SCREEN URINE NEGATIVE (NEGATIVE)
[2018-04-05 22:55] LABS: CANNABINOID URINE SCREEN NEGATIVE (NEGATIVE); METHADONE URINE SCREEN NEGATIVE (NEGATIVE); OPIATES URINE SCREEN NEGATIVE (NEGATIVE); PHENCYCLIDINE URINE SCREEN NEGATIVE (NEGATIVE)
[2018-04-06] VITALS (7 sets, daily range): BP systolic 115–200; BP diastolic 62–96
[2018-04-06] MEDS: HYDROCODONE/ACETAMINOPHEN 5/325MG TABLET PO PRN ×2 (00:39→11:42)
[2018-04-06] MEDS: ASPIRIN 81MG EC TABLET PO SCH (08:53)
[2018-04-06 09:34] LABS: BASOPHILS % 0.8 % (0.0-2.0); HEMOGLOBIN. 12.3 g/dL (12.0-16.0); LYMPHOCYTES % 36.9 % (20.0-50.0); MEAN CORPUSCULAR HEMOGLOBIN 27.3 pg (28.0-32.0); MEAN CORPUSCULAR VOLUME 84.7 fL (81.0-99.0); MEAN PLATELET VOLUME 9.3 fl (7.4-10.4); MONOCYTES % 14.3 % (2.0-8.0); PLATELET 85 x1000/uL (130-400); RED BLOOD CELL COUNT 4.49 mill/uL (4.2-5.4); RED CELL DISTRIBUTION WIDTH 15.4 % (11.6-14.6)
[2018-04-06 09:50] LABS: CREATINE KINASE MB FRACTION 1.4 ng/mL (0.5-3.6)
[2018-04-06] MEDS ORDERED: LORAZEPAM 0.5MG TABLET PO PRN (13:15)
[2018-04-06] MEDS ORDERED: FUROSEMIDE 20MG TABLET PO SCH (13:15)
[2018-04-06] MEDS: LEVOTHYROXINE SODIUM 25MCG TABLET PO SCH (14:03)
[2018-04-06] MEDS: SERTRALINE HCL 50MG TABLET PO SCH (14:03)
[2018-04-06] MEDS: LEVETIRACETAM 500MG TABLET PO SCH ×2 (14:03→20:19)
[2018-04-06] MEDS: HYDRALAZINE HCL 50MG TABLET PO SCH ×2 (14:04→21:21)
[2018-04-06] MEDS ORDERED: DIVALPROEX SODIUM 500MG ER TABLET PO SCH (15:00)
[2018-04-06 16:03] LABS: CREATINE KINASE MB FRACTION 1.1 ng/mL (0.5-3.6)
[2018-04-06] MEDS: BENAZEPRIL 10MG TABLET PO SCH (18:51)
[2018-04-06] MEDS: DIVALPROEX SODIUM 250MG DR TABLET PO SCH (20:27)
[2018-04-06] MEDS ORDERED: ATORVASTATIN CALCIUM 10MG TABLET PO SCH (21:00)
[2018-04-06] MEDS ORDERED: ATORVASTATIN CALCIUM 40MG TABLET PO SCH (21:00)
[2018-04-06] MEDS ORDERED: TRAZODONE HCL 100MG TABLET PO SCH (21:00)
[2018-04-06] MEDS: IPRATROPIUM/ALBUTEROL 0.5-3(2.5)MG/3ML NEB INH PRN (22:48)
[2018-04-07] VITALS: BP 147/87
[2018-04-07 04:00] VITALS: BP 109/73
[2018-04-07] MEDS: HYDRALAZINE HCL 50MG TABLET PO SCH ×2 (06:13→13:55)
[2018-04-07] MEDS: LEVOTHYROXINE SODIUM 25MCG TABLET PO SCH (06:13)
[2018-04-07 07:25] LABS: BASOPHILS % 0.9 % (0.0-2.0); EOSINOPHILS % 2.9 % (0.0-5.0); HEMATOCRIT. 34.9 % (36.0-48.0); HEMOGLOBIN. 11.3 g/dL (12.0-16.0); LYMPHOCYTES % 33.4 % (20.0-50.0); MEAN CORPUSCULAR HEMOGLOBIN 27.1 pg (28.0-32.0); MEAN CORPUSCULAR VOLUME 83.6 fL (81.0-99.0); MEAN PLATELET VOLUME 9.3 fl (7.4-10.4); MONOCYTES % 14.6 % (2.0-8.0); NEUTROPHILS % 48.2 % (40.0-76.0); PLATELET 90 x1000/uL (130-400); RED BLOOD CELL COUNT 4.18 mill/uL (4.2-5.4); RED CELL DISTRIBUTION WIDTH 15.1 % (11.6-14.6)
[2018-04-07 08:00] VITALS: BP 120/59
[2018-04-07] MEDS ORDERED: FUROSEMIDE 40MG TABLET PO SCH (09:00)
[2018-04-07] MEDS: SERTRALINE HCL 50MG TABLET PO SCH (10:01)
[2018-04-07] MEDS: HYDROCODONE/ACETAMINOPHEN 5/325MG TABLET PO PRN (10:02)
[2018-04-07] MEDS: ASPIRIN 81MG EC TABLET PO SCH (10:03)
[2018-04-07] MEDS: BENAZEPRIL 10MG TABLET PO SCH (10:03)
[2018-04-07] MEDS: LEVETIRACETAM 500MG TABLET PO SCH (10:03)
[2018-04-07] MEDS: DIVALPROEX SODIUM 250MG DR TABLET PO SCH (10:03)
[2018-04-07 12:00] VITALS: BP 145/75
[2018-04-07] MEDS: IPRATROPIUM/ALBUTEROL 0.5-3(2.5)MG/3ML NEB INH PRN (14:57)
[2018-04-07 16:00] VITALS: BP 181/98
[2018-04-07 16:19] VITALS: BP 181/98
== END 2018-04-07 18:00 | disposition home or self-care (01) | DRG 280 ==
LOC: ER 14:02 → 5WST 22:26 → ENRESERV 04-06 00:31
PROVIDERS: ADMIT Internal Medicine; ATTEND Internal Medicine
DX: I21.4 Non-ST elevation (NSTEMI) myocardial infarction (principal); I50.43 Acute on chronic combined systolic (congestive) and diastolic (congestive) heart failure; E87.1 Hypo-osmolality and hyponatremia; I13.0 Hypertensive heart and chronic kidney disease with heart failure and stage 1 through stage 4 chronic kidney disease, or unspecified chronic kidney disease; I42.9 Cardiomyopathy, unspecified; N17.9 Acute kidney failure, unspecified; I25.110 Atherosclerotic heart disease of native coronary artery with unstable angina pectoris; D64.9 Anemia, unspecified; E03.9 Hypothyroidism, unspecified; E11.22 Type 2 diabetes mellitus with diabetic chronic kidney disease; E78.00 Pure hypercholesterolemia, unspecified; E88.09 Other disorders of plasma-protein metabolism, not elsewhere classified; F20.9 Schizophrenia, unspecified; D72.819 Decreased white blood cell count, unspecified; F41.9 Anxiety disorder, unspecified; J44.9 Chronic obstructive pulmonary disease, unspecified; M94.0 Chondrocostal junction syndrome [Tietze]; N18.3 Chronic kidney disease, stage 3 (moderate); N28.1 Cyst of kidney, acquired; R56.9 Unspecified convulsions; Z79.82 Long term (current) use of aspirin; Z79.899 Other long term (current) drug therapy; Z82.49 Family history of ischemic heart disease and other diseases of the circulatory system; Z86.73 Personal history of transient ischemic attack (TIA), and cerebral infarction without residual deficits; I25.2 Old myocardial infarction; Z90.49 Acquired absence of other specified parts of digestive tract
CPT/HCPCS: 36415; 71045; 76770; 80048; 80061; 80305; 82550; 82553; 83735; 83880; 84443; 84484; 84703; 93005; 93970; 94640; 99285; J7620

== ENCOUNTER 2018-06-06 14:22 | Inpatient (IN) | payer MEDICARE, MEDICAID ==
[~2018-06-06] VITALS: Ht 162.6 cm; Wt 91.2 kg
[2018-06-06] MEDS ORDERED: ALBUTEROL (0.083%) 2.5MG/3ML NEB HHN STA (15:12)
[2018-06-06] MEDS ORDERED: METHYLPREDNISOLONE SOD SUCC 125 MG/2 ML VIAL IV STA (15:12)
[2018-06-06] MEDS ORDERED: IPRATROPIUM BROMIDE (0.02%) 0.5MG/2.5ML NEB HHN STA (15:12)
[2018-06-06 15:38] LABS: BASOPHILS % 0.8 % (0.0-2.0); EOSINOPHILS % 2.8 % (0.0-5.0); HEMATOCRIT. 29.8 % (36.0-48.0); HEMOGLOBIN. 9.9 g/dL (12.0-16.0); LYMPHOCYTES % 14.5 % (20.0-50.0); MEAN CORPUSCULAR VOLUME 84.1 fL (81.0-99.0); MEAN PLATELET VOLUME 7.8 fl (7.4-10.4); MONOCYTES % 7.1 % (2.0-8.0); NEUTROPHILS % 74.8 % (40.0-76.0); PLATELET 233 x1000/uL (130-400); RED BLOOD CELL COUNT 3.54 mill/uL (4.2-5.4); RED CELL DISTRIBUTION WIDTH 18.2 % (11.6-14.6)
[2018-06-06 15:41] LABS: CHLORIDE 111 mEq/L (98-107)
[2018-06-06] MEDS ORDERED: ASPIRIN 81MG TABLET PO ONE (16:30)
[2018-06-06] MEDS ORDERED: FUROSEMIDE 40MG/4ML VIAL IVP STA (16:53)
[2018-06-06] MEDS ORDERED: MAGNESIUM 2 G PREMIX 50 ML IV ONE (17:00)
[2018-06-06] MEDS ORDERED: HYDRALAZINE 20MG/ML VIAL IV ONE (17:00)
[2018-06-06] MEDS ORDERED: MAGNESIUM/ALUMINUM HYDROXIDE/SIMETHICONE 30ML UDC PO PRN (17:15)
[2018-06-06] MEDS ORDERED: DIPHENHYDRAMINE 50MG/ML VIAL IV PRN (17:15)
[2018-06-06] MEDS ORDERED: ONDANSETRON HCL 4MG/2ML INJ IV PRN (17:15)
[2018-06-06] MEDS ORDERED: IPRATROPIUM/ALBUTEROL 0.5-3(2.5)MG/3ML NEB INH PRN (17:15)
[2018-06-06 17:36] LABS: PHOSPHORUS 4.5 mg/dL (2.5-4.9)
[2018-06-06 17:56] LABS: CLARITY URINE CLEAR (CLEAR); COLOR URINE YELLOW (YELLOW); KETONES URINE NEGATIVE (NEGATIVE); LEUKOCYTE ESTERASE URINE NEGATIVE (NEGATIVE); NITRITE URINE NEGATIVE (NEGATIVE); OCCULT BLOOD URINE TRACE (NEGATIVE); PH URINE 5.5 (4.5-8.0); PROTEIN URINE 3+ (NEGATIVE); SPECIFIC GRAVITY URINE 1.014 (1.005-1.030); UROBILINOGEN URINE 0.2 E.U./dL (0.2-1.0)
[2018-06-06 18:02] LABS: HEPATITIS B SURFACE ANTIGEN NEGATIVE
[2018-06-06 18:07] LABS: *BARBITURATES SCREEN URINE NEGATIVE (NEGATIVE)
[2018-06-06 18:08] LABS: *BENZODIAZEPINES SCREEN URINE NEGATIVE (NEGATIVE); *COCAINE SCREEN URINE NEGATIVE (NEGATIVE); METHADONE URINE SCREEN NEGATIVE (NEGATIVE); OPIATES URINE SCREEN NEGATIVE (NEGATIVE); PHENCYCLIDINE URINE SCREEN NEGATIVE (NEGATIVE)
[2018-06-06 18:09] LABS: CANNABINOID URINE SCREEN NEGATIVE (NEGATIVE)
[2018-06-06 18:17] LABS: *AMPHETAMINES SCREEN URINE PRESUMTIVE POSITIVE (NEGATIVE)
[2018-06-06] MEDS: CLONIDINE 0.1MG TABLET PO PRN (18:17)
[2018-06-06 18:32] LABS: HEPATITIS A AB IGM NEGATIVE (NEGATIVE)
[2018-06-06] MEDS ORDERED: AZITHROMYCIN 500 MG in DEXT 5% WATER 250 ML IV SCH (21:00)
[2018-06-06] MEDS ORDERED: HYDRALAZINE 20MG/ML VIAL IV PRN (21:30)
[2018-06-06] MEDS ORDERED: NICARDIPINE 40MG/200ML PREMIX 200 ML IV SCH (23:30)
[2018-06-07 04:15] LABS: HEMATOCRIT. 31.6 % (36.0-48.0); HEMOGLOBIN. 10.6 g/dL (12.0-16.0); MEAN CORPUSCULAR HEMOGLOBIN 27.9 pg (28.0-32.0); MEAN CORPUSCULAR VOLUME 82.8 fL (81.0-99.0); MEAN PLATELET VOLUME 7.7 fl (7.4-10.4); PLATELET 247 x1000/uL (130-400); RED BLOOD CELL COUNT 3.81 mill/uL (4.2-5.4)
[2018-06-07 05:43] LABS: PLATELET ESTIMATE NORMAL
[2018-06-07] MEDS: CLONIDINE 0.1MG TABLET PO PRN ×2 (06:24→10:38)
[2018-06-07 08:00] VITALS: BP 169/108
[2018-06-07 10:01] VITALS: BP 169/108
[2018-06-07] MEDS: FUROSEMIDE 40MG/4ML VIAL IV SCH (10:38)
[2018-06-07 12:00] VITALS: BP 177/106
[2018-06-07] MEDS: LEVOTHYROXINE SODIUM 25MCG TABLET PO SCH (12:15)
[2018-06-07] MEDS: LEVETIRACETAM 500MG TABLET PO SCH ×2 (12:54→20:29)
[2018-06-07] MEDS: DIVALPROEX SODIUM 500MG ER TABLET PO SCH ×2 (12:54→20:29)
[2018-06-07] MEDS: CARVEDILOL 25MG TABLET PO SCH ×2 (12:54→20:28)
[2018-06-07] MEDS: SERTRALINE HCL 50MG TABLET PO SCH (12:58)
[2018-06-07] MEDS: MORPHINE SULFATE 4 MG/ML CPJ (NOT FOR IM USE) IV PRN (14:05)
[2018-06-07] MEDS: HYDRALAZINE HCL 50MG TABLET PO SCH ×2 (14:20→20:30)
[2018-06-07] MEDS: IPRATROPIUM/ALBUTEROL 0.5-3(2.5)MG/3ML NEB HHN SCH ×3 (14:39→20:39)
[2018-06-07 16:00] VITALS: BP 117/74
[2018-06-07 16:11] LABS: HCG SCREEN NEGATIVE
[2018-06-07 20:00] VITALS: BP 128/97
[2018-06-07] MEDS: GUAIFENESIN 600MG ER TABLET PO SCH (20:29)
[2018-06-07] MEDS: TRAZODONE HCL 100MG TABLET PO SCH (20:29)
[2018-06-08] VITALS: BP 93/57
[2018-06-08] MEDS: IPRATROPIUM/ALBUTEROL 0.5-3(2.5)MG/3ML NEB HHN SCH ×3 (01:06→19:34)
[2018-06-08] MEDS: AZITHROMYCIN 500 MG in DEXT 5% WATER 250 ML IV SCH ×2 (01:45→21:32)
[2018-06-08 04:00] VITALS: BP 96/70
[2018-06-08 05:31] LABS: HIV SCREEN 4G Non Reactive (Non Reactive)
[2018-06-08] MEDS: HYDRALAZINE HCL 50MG TABLET PO SCH ×3 (05:56→21:35)
[2018-06-08] MEDS: LEVOTHYROXINE SODIUM 25MCG TABLET PO SCH (05:56)
[2018-06-08 07:07] LABS: BASOPHILS % 0.2 % (0.0-2.0); EOSINOPHILS % 0.3 % (0.0-5.0); HEMATOCRIT. 26.2 % (36.0-48.0); HEMOGLOBIN. 8.7 g/dL (12.0-16.0); LYMPHOCYTES % 13.4 % (20.0-50.0); MEAN CORPUSCULAR VOLUME 84.3 fL (81.0-99.0); MEAN PLATELET VOLUME 8.1 fl (7.4-10.4); MONOCYTES % 6.3 % (2.0-8.0); NEUTROPHILS % 79.8 % (40.0-76.0); PLATELET 210 x1000/uL (130-400); RED BLOOD CELL COUNT 3.11 mill/uL (4.2-5.4); RED CELL DISTRIBUTION WIDTH 18.1 % (11.6-14.6)
[2018-06-08 08:00] VITALS: BP 106/68
[2018-06-08] MEDS: FUROSEMIDE 40MG/4ML VIAL IV SCH (09:25)
[2018-06-08] MEDS: LEVETIRACETAM 500MG TABLET PO SCH ×2 (09:26→21:32)
[2018-06-08] MEDS: DIVALPROEX SODIUM 500MG ER TABLET PO SCH ×2 (09:26→21:32)
[2018-06-08] MEDS: SERTRALINE HCL 50MG TABLET PO SCH (09:26)
[2018-06-08] MEDS: CARVEDILOL 25MG TABLET PO SCH ×2 (09:26→21:00)
[2018-06-08] MEDS: GUAIFENESIN 600MG ER TABLET PO SCH ×2 (09:26→21:32)
[2018-06-08] MEDS: POLYETHYLENE GLYCOL 3350 (17GM) 1 DOSE PACK PO SCH (09:39)
[2018-06-08 12:00] VITALS: BP 93/61
[2018-06-08] MEDS: CEFTRIAXONE 1 G PREMIX 50 ML IV SCH (14:39)
[2018-06-08 16:00] VITALS: BP 116/87
[2018-06-08] MEDS: MORPHINE SULFATE 4 MG/ML CPJ (NOT FOR IM USE) IV PRN (17:38)
[2018-06-08 20:00] VITALS: BP 104/69
[2018-06-08] MEDS: TRAZODONE HCL 100MG TABLET PO SCH (21:33)
[2018-06-09] VITALS: BP 107/68
[2018-06-09] MEDS: IPRATROPIUM/ALBUTEROL 0.5-3(2.5)MG/3ML NEB HHN SCH ×4 (03:41→20:06)
[2018-06-09 04:00] VITALS: BP 145/101
[2018-06-09] MEDS: LEVOTHYROXINE SODIUM 25MCG TABLET PO SCH (05:44)
[2018-06-09] MEDS: HYDRALAZINE HCL 50MG TABLET PO SCH ×3 (05:44→22:12)
[2018-06-09 06:53] LABS: BASOPHILS % 0.5 % (0.0-2.0); EOSINOPHILS % 3.5 % (0.0-5.0); HEMOGLOBIN. 9.8 g/dL (12.0-16.0); LYMPHOCYTES % 33.7 % (20.0-50.0); MEAN CORPUSCULAR HEMOGLOBIN 27.6 pg (28.0-32.0); MEAN CORPUSCULAR VOLUME 84.6 fL (81.0-99.0); MONOCYTES % 8.6 % (2.0-8.0); NEUTROPHILS % 53.7 % (40.0-76.0); PLATELET 246 x1000/uL (130-400); RED BLOOD CELL COUNT 3.55 mill/uL (4.2-5.4); RED CELL DISTRIBUTION WIDTH 17.5 % (11.6-14.6)
[2018-06-09 07:19] LABS: CHLORIDE 104 mEq/L (98-107)
[2018-06-09 08:00] VITALS: BP 145/96
[2018-06-09] MEDS: LEVETIRACETAM 500MG TABLET PO SCH ×2 (08:38→20:48)
[2018-06-09] MEDS: FUROSEMIDE 40MG/4ML VIAL IV SCH (08:38)
[2018-06-09] MEDS: SERTRALINE HCL 50MG TABLET PO SCH (08:38)
[2018-06-09] MEDS: POLYETHYLENE GLYCOL 3350 (17GM) 1 DOSE PACK PO SCH (08:38)
[2018-06-09] MEDS: DIVALPROEX SODIUM 500MG ER TABLET PO SCH ×2 (08:38→20:48)
[2018-06-09] MEDS: GUAIFENESIN 600MG ER TABLET PO SCH ×2 (08:38→20:48)
[2018-06-09] MEDS: CARVEDILOL 25MG TABLET PO SCH (08:58)
[2018-06-09] MEDS ORDERED: GUAIFENESIN 200MG/10ML SUGAR FREE UDC PO NR (09:30)
[2018-06-09] MEDS ORDERED: GUAIFENESIN 200MG/10ML SUGAR FREE UDC PO PRN (09:30)
[2018-06-09 12:00] VITALS: BP 117/80
[2018-06-09 16:00] VITALS: BP 119/71
[2018-06-09] MEDS: CEFTRIAXONE 1 G PREMIX 50 ML IV SCH (16:16)
[2018-06-09 20:00] VITALS: BP 141/84
[2018-06-09] MEDS: AZITHROMYCIN 500 MG TABLET PO SCH (20:48)
[2018-06-09] MEDS: TRAZODONE HCL 100MG TABLET PO SCH (20:49)
[2018-06-09] MEDS: CARVEDILOL 12.5MG TABLET PO SCH (20:49)
[2018-06-10] VITALS: BP 146/96
[2018-06-10] MEDS: IPRATROPIUM/ALBUTEROL 0.5-3(2.5)MG/3ML NEB HHN SCH ×4 (01:30→20:41)
[2018-06-10 06:02] LABS: BASOPHILS % 0.6 % (0.0-2.0); EOSINOPHILS % 5.2 % (0.0-5.0); HEMATOCRIT. 28.8 % (36.0-48.0); HEMOGLOBIN. 9.5 g/dL (12.0-16.0); MEAN CORPUSCULAR HEMOGLOBIN 27.8 pg (28.0-32.0); MEAN CORPUSCULAR VOLUME 84.1 fL (81.0-99.0); MEAN PLATELET VOLUME 7.8 fl (7.4-10.4); MONOCYTES % 10.5 % (2.0-8.0); NEUTROPHILS % 54.7 % (40.0-76.0); PLATELET 246 x1000/uL (130-400); RED BLOOD CELL COUNT 3.42 mill/uL (4.2-5.4); RED CELL DISTRIBUTION WIDTH 17.8 % (11.6-14.6)
[2018-06-10] MEDS: LEVOTHYROXINE SODIUM 25MCG TABLET PO SCH (06:11)
[2018-06-10] MEDS: HYDRALAZINE HCL 50MG TABLET PO SCH ×3 (06:12→21:08)
[2018-06-10 08:00] VITALS: BP 134/79
[2018-06-10] MEDS: POLYETHYLENE GLYCOL 3350 (17GM) 1 DOSE PACK PO SCH (10:04)
[2018-06-10] MEDS: FUROSEMIDE 40MG/4ML VIAL IV SCH (10:04)
[2018-06-10] MEDS: GUAIFENESIN 600MG ER TABLET PO SCH ×2 (10:05→21:09)
[2018-06-10] MEDS: DIVALPROEX SODIUM 500MG ER TABLET PO SCH ×2 (10:05→21:09)
[2018-06-10] MEDS: SERTRALINE HCL 50MG TABLET PO SCH (10:05)
[2018-06-10] MEDS: LEVETIRACETAM 500MG TABLET PO SCH ×2 (10:05→21:10)
[2018-06-10] MEDS: CARVEDILOL 12.5MG TABLET PO SCH ×2 (10:05→21:10)
[2018-06-10 12:00] VITALS: BP 126/84
[2018-06-10 16:00] VITALS: BP 143/83
[2018-06-10] MEDS ORDERED: CEFTRIAXONE 1 G PREMIX 50 ML IV SCH (17:00)
[2018-06-10 20:00] VITALS: BP 145/81
[2018-06-10] MEDS: TRAZODONE HCL 100MG TABLET PO SCH (21:09)
[2018-06-10] MEDS: AZITHROMYCIN 500 MG TABLET PO SCH (21:09)
[2018-06-11] VITALS: BP 138/66
[2018-06-11] MEDS: IPRATROPIUM/ALBUTEROL 0.5-3(2.5)MG/3ML NEB HHN SCH ×3 (02:01→14:33)
[2018-06-11 04:00] VITALS: BP 127/76
[2018-06-11] MEDS: LEVOTHYROXINE SODIUM 25MCG TABLET PO SCH (05:57)
[2018-06-11] MEDS: HYDRALAZINE HCL 50MG TABLET PO SCH ×2 (05:57→15:10)
[2018-06-11 06:19] LABS: BASOPHILS % 0.7 % (0.0-2.0); EOSINOPHILS % 3.3 % (0.0-5.0); HEMATOCRIT. 29.8 % (36.0-48.0); HEMOGLOBIN. 9.9 g/dL (12.0-16.0); LYMPHOCYTES % 24.8 % (20.0-50.0); MEAN CORPUSCULAR HEMOGLOBIN 27.8 pg (28.0-32.0); MEAN CORPUSCULAR VOLUME 83.6 fL (81.0-99.0); NEUTROPHILS % 61.2 % (40.0-76.0); PLATELET 264 x1000/uL (130-400); RED BLOOD CELL COUNT 3.57 mill/uL (4.2-5.4); RED CELL DISTRIBUTION WIDTH 17.6 % (11.6-14.6)
[2018-06-11 08:00] VITALS: BP 166/100
[2018-06-11] MEDS: GUAIFENESIN 600MG ER TABLET PO SCH (08:29)
[2018-06-11] MEDS: LEVETIRACETAM 500MG TABLET PO SCH (08:29)
[2018-06-11] MEDS: POLYETHYLENE GLYCOL 3350 (17GM) 1 DOSE PACK PO SCH (08:29)
[2018-06-11] MEDS: DIVALPROEX SODIUM 500MG ER TABLET PO SCH (08:29)
[2018-06-11] MEDS: CLONIDINE 0.1MG TABLET PO PRN (08:29)
[2018-06-11] MEDS: CARVEDILOL 12.5MG TABLET PO SCH (08:29)
[2018-06-11] MEDS: SERTRALINE HCL 50MG TABLET PO SCH (08:30)
[2018-06-11] MEDS ORDERED: FUROSEMIDE 20MG/2ML VIAL IVP SCH (09:00)
[2018-06-11 12:00] VITALS: BP 137/84
[2018-06-11 14:31] VITALS: BP 137/84
[2018-06-14 13:06] LABS: QFT MITOGEN VALUE 1.03 IU/mL (.); QFT TB GOLD PLUS Negative (Negative); QFT TB1 AG VALUE 0.05 IU/mL (.)
== END 2018-06-11 15:20 | disposition home or self-care (01) | DRG 871 ==
LOC: ER 14:22 → 5WST 16:55 → CANRESERV 21:48 → ENRESERV 21:48 → EDBEDREQSVC 23:22 → EDBEDREQTM 23:22 → EDBEDREQDT 06-07 06:13 → EDBEDREQSVC 06-07 06:13 → ENRESERV 06-07 06:47 → 5WST 06-07 09:02
PROVIDERS: ADMIT Internal Medicine; ATTEND Internal Medicine
DX: A41.9 Sepsis, unspecified organism (principal); J96.00 Acute respiratory failure, unspecified whether with hypoxia or hypercapnia; J18.1 Lobar pneumonia, unspecified organism; I50.43 Acute on chronic combined systolic (congestive) and diastolic (congestive) heart failure; N17.9 Acute kidney failure, unspecified; J44.1 Chronic obstructive pulmonary disease with (acute) exacerbation; R04.2 Hemoptysis; I13.0 Hypertensive heart and chronic kidney disease with heart failure and stage 1 through stage 4 chronic kidney disease, or unspecified chronic kidney disease; N18.4 Chronic kidney disease, stage 4 (severe); I16.1 Hypertensive emergency; I42.0 Dilated cardiomyopathy; J44.0 Chronic obstructive pulmonary disease with (acute) lower respiratory infection; G40.909 Epilepsy, unspecified, not intractable, without status epilepticus; F15.90 Other stimulant use, unspecified, uncomplicated; D64.9 Anemia, unspecified; E03.9 Hypothyroidism, unspecified; E78.00 Pure hypercholesterolemia, unspecified; F12.90 Cannabis use, unspecified, uncomplicated; F20.9 Schizophrenia, unspecified; F41.9 Anxiety disorder, unspecified; I25.10 Atherosclerotic heart disease of native coronary artery without angina pectoris; I27.21 Secondary pulmonary arterial hypertension; I34.0 Nonrheumatic mitral (valve) insufficiency; I71.2 Thoracic aortic aneurysm, without rupture; N28.1 Cyst of kidney, acquired; E66.9 Obesity, unspecified; K76.0 Fatty (change of) liver, not elsewhere classified; Z71.89 Other specified counseling; Z82.49 Family history of ischemic heart disease and other diseases of the circulatory system; Z86.73 Personal history of transient ischemic attack (TIA), and cerebral infarction without residual deficits; Z91.19 Patient's noncompliance with other medical treatment and regimen; Z87.891 Personal history of nicotine dependence; Z79.82 Long term (current) use of aspirin; I25.2 Old myocardial infarction; Z90.49 Acquired absence of other specified parts of digestive tract; Z68.34 Body mass index [BMI] 34.0-34.9, adult
CPT/HCPCS: 36415; 71045; 71250; 76700; 80048; 80061; 80305; 81025; 82607; 82728; 82746; 83036; 83540; 83550; 83735; 83880; 84100; 84443; 84484; 84703; 86480; 86705; 86709; 86803; 87340; 87389; 93005; 93306; 93970; 96365; 96366; 96368; 96375; 97162; 97165; 99285; J0360; J0456; J0696; J1200; J1940; J2270; J2930; J3475; J7040; J7060; J7611; J7620

== ENCOUNTER 2018-11-29 17:04 | Inpatient (IN) | payer MEDICARE, MEDICAID ==
[~2018-11-29] VITALS: Ht 162.6 cm; Wt 90.7 kg
[~2018-11-29 17:04] MED LIST changes: -ASPI-1159 PO; +ASPI-1393 PO; +FURO-151 PO; +LORA-250 PO; -TRAZ-213 PO; +TRAZ150T78 PO
[2018-11-29] MEDS ORDERED: ONDANSETRON HCL 4MG/2ML INJ IV STA (18:16)
[2018-11-29] MEDS ORDERED: MORPHINE SULFATE 4 MG/ML CPJ (NOT FOR IM USE) IV STA (18:16)
[2018-11-29] MEDS ORDERED: LORAZEPAM 2MG/ML CPJ IV ONE (18:30)
[2018-11-29 18:43] LABS: BASOPHILS % 0.5 % (0.0-2.0); EOSINOPHILS % 1.4 % (0.0-5.0); HEMATOCRIT. 32.8 % (36.0-48.0); HEMOGLOBIN. 11.1 g/dL (12.0-16.0); LYMPHOCYTES % 9.9 % (20.0-50.0); MEAN CORPUSCULAR HEMOGLOBIN 31.9 pg (28.0-32.0); MEAN CORPUSCULAR VOLUME 94.6 fL (81.0-99.0); MEAN PLATELET VOLUME 7.1 fl (7.4-10.4); MONOCYTES % 7.9 % (2.0-8.0); NEUTROPHILS % 80.3 % (40.0-76.0); PLATELET 209 x1000/uL (130-400); RED BLOOD CELL COUNT 3.47 mill/uL (4.2-5.4); RED CELL DISTRIBUTION WIDTH 15.3 % (11.6-14.6)
[2018-11-29 18:49] LABS: CHLORIDE 103 mEq/L (98-107)
[2018-11-29 18:52] LABS: HCG SCREEN NEGATIVE
[2018-11-29] MEDS ORDERED: ASPIRIN 81MG TABLET PO ONE (21:15)
[2018-11-29] MEDS ORDERED: DOCUSATE SODIUM 100MG CAPSULE PO PRN (21:45)
[2018-11-29] MEDS ORDERED: ACETAMINOPHEN 325MG TABLET PO PRN (21:45)
[2018-11-29] MEDS ORDERED: IPRATROPIUM/ALBUTEROL 0.5-3(2.5)MG/3ML NEB NEB PRN (21:45)
[2018-11-29] MEDS ORDERED: ONDANSETRON HCL 4MG/2ML INJ IV PRN (21:45)
[2018-11-29] MEDS ORDERED: CLONIDINE 0.1MG TABLET PO PRN (21:45)
[2018-11-29] MEDS ORDERED: MORPHINE SULFATE 2 MG/ML CPJ (NOT FOR IM USE) IV PRN (21:45)
[2018-11-29 23:30] VITALS: BP 101/62
[2018-11-30] MEDS ORDERED: CLON-457 PO (00:40)
[2018-11-30] MEDS ORDERED: LISI40TA4 PO (00:41)
[2018-11-30 04:00] VITALS: BP 106/57
[2018-11-30 06:27] LABS: BASOPHILS % 0.7 % (0.0-2.0); EOSINOPHILS % 3.6 % (0.0-5.0); HEMOGLOBIN. 9.8 g/dL (12.0-16.0); LYMPHOCYTES % 32.5 % (20.0-50.0); MEAN CORPUSCULAR HEMOGLOBIN 32.1 pg (28.0-32.0); MEAN CORPUSCULAR VOLUME 94.9 fL (81.0-99.0); MEAN PLATELET VOLUME 7.7 fl (7.4-10.4); MONOCYTES % 9.5 % (2.0-8.0); NEUTROPHILS % 53.7 % (40.0-76.0); PLATELET 149 x1000/uL (130-400); RED BLOOD CELL COUNT 3.05 mill/uL (4.2-5.4); RED CELL DISTRIBUTION WIDTH 15.6 % (11.6-14.6)
[2018-11-30 08:00] VITALS: BP 104/50
[2018-11-30] MEDS ORDERED: LORAZEPAM 0.5MG TABLET PO PRN (10:00)
[2018-11-30] MEDS: CITRIC ACID/SODIUM CITRATE SOLN 15ML UDC PO SCH (11:03)
[2018-11-30] MEDS: ATORVASTATIN CALCIUM 40MG TABLET PO SCH (11:03)
[2018-11-30] MEDS: SERTRALINE HCL 50MG TABLET PO SCH (11:04)
[2018-11-30] MEDS: FUROSEMIDE 20MG TABLET PO SCH (11:05)
[2018-11-30] MEDS: LEVETIRACETAM 500MG TABLET PO SCH ×2 (11:05→21:09)
[2018-11-30] MEDS: LISINOPRIL 40MG TABLET PO SCH (11:11)
[2018-11-30 12:00] VITALS: BP 118/59
[2018-11-30] MEDS: HYDRALAZINE HCL 50MG TABLET PO SCH ×2 (14:00→21:13)
[2018-11-30] MEDS: CLONIDINE 0.3MG TABLET PO SCH ×2 (14:57→20:53)
[2018-11-30 16:00] VITALS: BP 147/67
[2018-11-30] MEDS: DIVALPROEX SODIUM 250MG ER TABLET PO SCH (17:50)
[2018-11-30 20:00] VITALS: BP 95/51
[2018-11-30 20:39] LABS: PROTHROMBIN TIME 10.7 sec (9.6-11.0)
[2018-11-30] MEDS: CARVEDILOL 12.5MG TABLET PO SCH (20:52)
[2018-11-30] MEDS: TRAZODONE HCL 50MG TABLET PO SCH (21:09)
[2018-12-01] VITALS: BP 93/50
[2018-12-01 01:09] LABS: *AMPHETAMINES SCREEN URINE NEGATIVE (NEGATIVE); CANNABINOID URINE SCREEN NEGATIVE (NEGATIVE); METHADONE URINE SCREEN NEGATIVE (NEGATIVE); PHENCYCLIDINE URINE SCREEN NEGATIVE (NEGATIVE)
[2018-12-01 01:10] LABS: *BARBITURATES SCREEN URINE NEGATIVE (NEGATIVE); *BENZODIAZEPINES SCREEN URINE NEGATIVE (NEGATIVE); *COCAINE SCREEN URINE NEGATIVE (NEGATIVE); OPIATES URINE SCREEN PRESUMTIVE POSITIVE (NEGATIVE)
[2018-12-01 04:00] VITALS: BP 101/52
[2018-12-01] MEDS: HYDRALAZINE HCL 50MG TABLET PO SCH ×3 (05:29→21:45)
[2018-12-01] MEDS: CLONIDINE 0.3MG TABLET PO SCH ×3 (05:29→21:45)
[2018-12-01 08:00] VITALS: BP 111/63
[2018-12-01] MEDS: CARVEDILOL 12.5MG TABLET PO SCH ×2 (08:57→21:45)
[2018-12-01] MEDS: LISINOPRIL 40MG TABLET PO SCH (08:57)
[2018-12-01] MEDS ORDERED: LIDOCAINE HCL 1% 20ML VIAL (Pyxis) INJ ONE (09:07)
[2018-12-01] MEDS ORDERED: IOHEXOL-300 50 ML BOTTLE IV ONE (09:10)
[2018-12-01] MEDS: ASPIRIN 81MG EC TABLET PO SCH (09:17)
[2018-12-01] MEDS: CITRIC ACID/SODIUM CITRATE SOLN 15ML UDC PO SCH (09:17)
[2018-12-01] MEDS: DIPHENHYDRAMINE 25MG CAPSULE PO PRN ×2 (09:17→17:41)
[2018-12-01] MEDS: SERTRALINE HCL 50MG TABLET PO SCH (09:17)
[2018-12-01] MEDS: LEVETIRACETAM 500MG TABLET PO SCH ×2 (09:17→21:45)
[2018-12-01] MEDS: DIVALPROEX SODIUM 250MG ER TABLET PO SCH ×2 (09:17→17:27)
[2018-12-01] MEDS: LEVOTHYROXINE SODIUM 25MCG TABLET PO SCH (09:18)
[2018-12-01] MEDS: FUROSEMIDE 20MG TABLET PO SCH (09:18)
[2018-12-01] MEDS: ATORVASTATIN CALCIUM 40MG TABLET PO SCH (09:20)
[2018-12-01 12:00] VITALS: BP 118/74
[2018-12-01] MEDS: HYDROCODONE/ACETAMINOPHEN 5/325MG TABLET PO PRN (13:16)
[2018-12-01] MEDS ORDERED: CLON0.3T4 PO (14:36)
[2018-12-01 16:00] VITALS: BP 138/79
[2018-12-01 20:00] VITALS: BP 122/63
[2018-12-01] MEDS ORDERED: HEPARIN SODIUM 1,000 UNIT/1ML VIAL IV NR (21:30)
[2018-12-01] MEDS ORDERED: HEPARIN SODIUM 1,000 UNIT/1ML VIAL IV ONE (21:30)
[2018-12-01] MEDS: TRAZODONE HCL 50MG TABLET PO SCH (21:44)
[2018-12-02 00:05] VITALS: BP 128/65
[2018-12-02 04:00] VITALS: BP 99/49
[2018-12-02] MEDS: HYDRALAZINE HCL 50MG TABLET PO SCH ×2 (05:52→13:05)
[2018-12-02] MEDS: CLONIDINE 0.3MG TABLET PO SCH ×2 (05:53→13:05)
[2018-12-02 08:00] VITALS: BP 142/75
[2018-12-02] MEDS: CITRIC ACID/SODIUM CITRATE SOLN 15ML UDC PO SCH (08:21)
[2018-12-02] MEDS: LEVETIRACETAM 500MG TABLET PO SCH (08:23)
[2018-12-02] MEDS: ATORVASTATIN CALCIUM 40MG TABLET PO SCH (08:23)
[2018-12-02] MEDS: LEVOTHYROXINE SODIUM 25MCG TABLET PO SCH (08:23)
[2018-12-02] MEDS: SERTRALINE HCL 50MG TABLET PO SCH (08:23)
[2018-12-02] MEDS: ASPIRIN 81MG EC TABLET PO SCH (08:23)
[2018-12-02] MEDS: FUROSEMIDE 20MG TABLET PO SCH (08:24)
[2018-12-02] MEDS: HYDROCODONE/ACETAMINOPHEN 5/325MG TABLET PO PRN (08:29)
[2018-12-02] MEDS: LISINOPRIL 40MG TABLET PO SCH (08:30)
[2018-12-02] MEDS: CARVEDILOL 12.5MG TABLET PO SCH (08:30)
[2018-12-02 12:00] VITALS: BP_SYST 83; BP_DIAS 68; BP_DIAS 98
[2018-12-02] MEDS: DIVALPROEX SODIUM 250MG ER TABLET PO SCH (12:56)
[2018-12-02 16:00] VITALS: BP 91/47
[2018-12-02 16:17] VITALS: BP 91/47
== END 2018-12-02 18:53 | disposition home or self-care (01) | DRG 314 ==
LOC: ER 17:04 → 7WST 21:15 → ENRESERV 22:17 → 7WST 11-30 00:24
PROVIDERS: ADMIT Internal Medicine; ATTEND Internal Medicine
PROC: 02HV33Z Insertion of Infusion Device into Superior Vena Cava, Percutaneous Approach (ICD-10-PCS; principal; 2018-12-01)
PROC: B5181ZA Fluoroscopy of Superior Vena Cava using Low Osmolar Contrast, Guidance (ICD-10-PCS; 2018-12-01)
PROC: B548ZZA Ultrasonography of Superior Vena Cava, Guidance (ICD-10-PCS; 2018-12-01)
PROC: 5A1D70Z Performance of Urinary Filtration, Intermittent, Less than 6 Hours Per Day (ICD-10-PCS; 2018-12-01)
DX: T82.41XA Breakdown (mechanical) of vascular dialysis catheter, initial encounter (principal); N18.6 End stage renal disease; I13.2 Hypertensive heart and chronic kidney disease with heart failure and with stage 5 chronic kidney disease, or end stage renal disease; D63.8 Anemia in other chronic diseases classified elsewhere; F41.9 Anxiety disorder, unspecified; I50.9 Heart failure, unspecified; R07.89 Other chest pain; Y71.2 Prosthetic and other implants, materials and accessory cardiovascular devices associated with adverse incidents; W18.39XA Other fall on same level, initial encounter; I95.9 Hypotension, unspecified; S09.90XA Unspecified injury of head, initial encounter; Z99.2 Dependence on renal dialysis; Z86.73 Personal history of transient ischemic attack (TIA), and cerebral infarction without residual deficits; Z82.49 Family history of ischemic heart disease and other diseases of the circulatory system; Z79.899 Other long term (current) drug therapy; Z79.82 Long term (current) use of aspirin; Y92.89 Other specified places as the place of occurrence of the external cause; Y93.89 Activity, other specified; Y99.8 Other external cause status
CPT/HCPCS: 36415; 36556; 71045; 77001; 80048; 80061; 80305; 84443; 84484; 84703; 93005; 93970; 94640; 96374; 99285; C1725; C1752; C1769; J1644; J2060; J2270; J2405; J3490; J7040; J7620; Q0163; Q9967

== ENCOUNTER 2019-01-03 13:51 | Emergency (ER) | payer MEDICARE, MEDICAID ==
[~2019-01-03] VITALS: Ht 172.7 cm; Wt 92.0 kg
[~2019-01-03 13:51] MED LIST changes: +CLON-457 PO; -FURO-151 PO; +LISI40TA4 PO
[2019-01-03 14:24] VITALS: BP 133/80
[2019-01-03 15:16] LABS: BASOPHILS % 0.7 % (0.0-2.0); EOSINOPHILS % 3.6 % (0.0-5.0); HEMATOCRIT. 26.7 % (36.0-48.0); HEMOGLOBIN. 9.1 g/dL (12.0-16.0); LYMPHOCYTES % 19.6 % (20.0-50.0); MEAN CORPUSCULAR HEMOGLOBIN 31.9 pg (28.0-32.0); MEAN CORPUSCULAR VOLUME 93.7 fL (81.0-99.0); MEAN PLATELET VOLUME 6.8 fl (7.4-10.4); MONOCYTES % 9.9 % (2.0-8.0); NEUTROPHILS % 66.2 % (40.0-76.0); PLATELET 215 x1000/uL (130-400); RED BLOOD CELL COUNT 2.85 mill/uL (4.2-5.4); RED CELL DISTRIBUTION WIDTH 13.7 % (11.6-14.6)
[2019-01-03 15:18] LABS: CHLORIDE 106 mEq/L (98-107)
[2019-01-03] MEDS ORDERED: ACETAMINOPHEN 325MG TABLET PO ONE (15:45)
== END 2019-01-03 15:52 | disposition home or self-care (01) ==
LOC: ER 13:51
DX: F41.9 Anxiety disorder, unspecified (principal); I13.2 Hypertensive heart and chronic kidney disease with heart failure and with stage 5 chronic kidney disease, or end stage renal disease; N18.6 End stage renal disease; I50.9 Heart failure, unspecified; Z99.2 Dependence on renal dialysis; Z79.82 Long term (current) use of aspirin; Z86.19 Personal history of other infectious and parasitic diseases
CPT/HCPCS: 36415; 71045; 93005; 99284

== ENCOUNTER 2019-04-10 11:31 | Emergency (ER) | payer MEDICARE, MEDICAID ==
[~2019-04-10] VITALS: Ht 162.6 cm; Wt 93.0 kg
[~2019-04-10 11:31] MED LIST changes: -ASPI-1393 PO; +ASPI-1497 PO
[2019-04-10] MEDS ORDERED: IBUPROFEN 600MG TABLET PO STA (13:11)
[2019-04-10 13:27] LABS: BASOPHILS % 1.3 % (0.0-2.0); EOSINOPHILS % 2.7 % (0.0-5.0); LYMPHOCYTES % 36.1 % (20.0-50.0); MEAN CORPUSCULAR HEMOGLOBIN 30.8 pg (28.0-32.0); MEAN CORPUSCULAR VOLUME 92.6 fL (81.0-99.0); MEAN PLATELET VOLUME 7.3 fl (7.4-10.4); MONOCYTES % 12.5 % (2.0-8.0); NEUTROPHILS % 47.4 % (40.0-76.0); PLATELET 221 x1000/uL (130-400); RED BLOOD CELL COUNT 3.89 mill/uL (4.2-5.4)
[2019-04-10 13:40] LABS: CHLORIDE 103 mEq/L (98-107)
[2019-04-10 15:03] VITALS: BP 177/100
== END 2019-04-10 15:06 | disposition home or self-care (01) ==
LOC: ER 11:31
DX: S09.8XXA Other specified injuries of head, initial encounter (principal); I13.2 Hypertensive heart and chronic kidney disease with heart failure and with stage 5 chronic kidney disease, or end stage renal disease; N18.6 End stage renal disease; I50.9 Heart failure, unspecified; J44.9 Chronic obstructive pulmonary disease, unspecified; E78.00 Pure hypercholesterolemia, unspecified; R56.9 Unspecified convulsions; I99.9 Unspecified disorder of circulatory system; W01.0XXA Fall on same level from slipping, tripping and stumbling without subsequent striking against object, initial encounter; Y93.9 Activity, unspecified; Y92.9 Unspecified place or not applicable; Z99.2 Dependence on renal dialysis; Z79.82 Long term (current) use of aspirin; Z86.73 Personal history of transient ischemic attack (TIA), and cerebral infarction without residual deficits; Z86.718 Personal history of other venous thrombosis and embolism; Z98.890 Other specified postprocedural states
CPT/HCPCS: 36415; 71045; 80053; 85025; 99284

== ENCOUNTER 2019-06-22 14:02 | Emergency (ER) | payer MEDICARE, MEDICAID ==
[~2019-06-22] VITALS: Ht 167.6 cm; Wt 98.5 kg
[2019-06-22] MEDS ORDERED: TRAMADOL 50MG TABLET PO ONE (14:30)
[2019-06-22] MEDS ORDERED: ONDANSETRON 4MG ODT PO ONE (14:30)
[2019-06-23 01:02] VITALS: BP 147/84
== END 2019-06-23 01:06 | disposition home or self-care (01) ==
LOC: ER 14:19
DX: R07.89 Other chest pain (principal); R94.31 Abnormal electrocardiogram [ECG] [EKG]; I12.0 Hypertensive chronic kidney disease with stage 5 chronic kidney disease or end stage renal disease; N18.6 End stage renal disease; Z99.2 Dependence on renal dialysis; J44.9 Chronic obstructive pulmonary disease, unspecified; F12.10 Cannabis abuse, uncomplicated; Z79.899 Other long term (current) drug therapy
CPT/HCPCS: 36415; 71045; 80048; 84484; 93005; 99285; Q0162

== ENCOUNTER 2019-07-10 15:03 | Inpatient (IN) | payer MEDICARE, MEDICAID ==
[~2019-07-10] VITALS: Ht 157.5 cm; Wt 102.1 kg
[2019-07-10 15:42] LABS: EOSINOPHILS % 3.9 % (0.0-5.0); HEMATOCRIT. 35.1 % (36.0-48.0); HEMOGLOBIN. 11.7 g/dL (12.0-16.0); MEAN CORPUSCULAR HEMOGLOBIN 31.2 pg (28.0-32.0); MEAN CORPUSCULAR VOLUME 93.4 fL (81.0-99.0); MEAN PLATELET VOLUME 6.9 fl (7.4-10.4); MONOCYTES % 13.5 % (2.0-8.0); NEUTROPHILS % 45.6 % (40.0-76.0); PLATELET 208 x1000/uL (130-400); RED BLOOD CELL COUNT 3.76 mill/uL (4.2-5.4); RED CELL DISTRIBUTION WIDTH 13.9 % (11.6-14.6)
[2019-07-10 15:44] LABS: CHLORIDE 100 mEq/L (98-107)
[2019-07-10] MEDS ORDERED: ASPIRIN 325MG EC TABLET PO ONE (17:45)
[2019-07-10] MEDS ORDERED: ONDANSETRON HCL 4MG/2ML INJ IV PRN (18:30)
[2019-07-10] MEDS ORDERED: CLONIDINE 0.1MG TABLET PO PRN (18:30)
[2019-07-10 18:46] LABS: PHOSPHORUS 7.2 mg/dL (2.5-4.9)
[2019-07-10 23:15] VITALS: BP 136/83
[2019-07-10] MEDS ORDERED: IPRATROPIUM/ALBUTEROL 0.5-3(2.5)MG/3ML NEB HHN PRN (23:37)
[2019-07-11] VITALS (8 sets, daily range): BP systolic 148–188; BP diastolic 80–98
[2019-07-11] MEDS: ACETAMINOPHEN 325MG TABLET PO PRN ×3 (00:55→15:29)
[2019-07-11] MEDS: SEVELAMER CARBONATE 800 MG TABLET PO SCH ×3 (08:55→18:33)
[2019-07-11] MEDS: DOCUSATE SODIUM 100MG CAPSULE PO SCH ×2 (08:55→16:30)
[2019-07-11 10:53] LABS: BASOPHILS % 0.6 % (0.0-2.0); EOSINOPHILS % 3.4 % (0.0-5.0); HEMATOCRIT. 33.5 % (36.0-48.0); HEMOGLOBIN. 11.4 g/dL (12.0-16.0); LYMPHOCYTES % 28.1 % (20.0-50.0); MEAN CORPUSCULAR HEMOGLOBIN 31.7 pg (28.0-32.0); MEAN CORPUSCULAR VOLUME 93.4 fL (81.0-99.0); MEAN PLATELET VOLUME 7.3 fl (7.4-10.4); MONOCYTES % 11.1 % (2.0-8.0); NEUTROPHILS % 56.8 % (40.0-76.0); PLATELET 187 x1000/uL (130-400); RED BLOOD CELL COUNT 3.59 mill/uL (4.2-5.4)
[2019-07-11 11:02] LABS: CHLORIDE 99 mEq/L (98-107)
[2019-07-11 11:09] LABS: LDL CHOLESTEROL 40 mg/dL (5-100)
[2019-07-11 11:10] LABS: HDL CHOLESTEROL 51 mg/dL (40-59)
[2019-07-11] MEDS ORDERED: HYDRALAZINE 20MG/ML VIAL IV PRN (11:45)
[2019-07-11] MEDS: FUROSEMIDE 20MG TABLET PO SCH ×2 (12:56→20:20)
[2019-07-11] MEDS: AMLODIPINE 5MG TABLET PO SCH ×2 (12:57→20:21)
[2019-07-11] MEDS ORDERED: LORAZEPAM 0.5MG TABLET PO PRN (16:00)
[2019-07-11] MEDS: CITRIC ACID/SODIUM CITRATE SOLN 15ML UDC PO SCH (16:30)
[2019-07-11] MEDS: LEVETIRACETAM 500MG TABLET PO SCH (16:30)
[2019-07-11] MEDS: SERTRALINE HCL 50MG TABLET PO SCH (16:31)
[2019-07-11] MEDS ORDERED: HYDRALAZINE HCL 50MG TABLET PO SCH (17:00)
[2019-07-11] MEDS ORDERED: DIPHENHYDRAMINE 50MG/ML VIAL IV SCH (18:30)
[2019-07-11] MEDS: DIVALPROEX SODIUM 500MG DR TABLET PO SCH (18:39)
[2019-07-11] MEDS: LISINOPRIL 20MG TABLET PO SCH (18:40)
[2019-07-11] MEDS: CARVEDILOL 12.5MG TABLET PO SCH (20:21)
[2019-07-11] MEDS ORDERED: ATORVASTATIN CALCIUM 40MG TABLET PO SCH (21:00)
[2019-07-11] MEDS: CLONIDINE 0.3MG TABLET PO SCH (21:24)
[2019-07-11] MEDS: HYDRALAZINE HCL 50MG TABLET PO SCH (21:24)
[2019-07-12] VITALS: BP 159/98
[2019-07-12 02:09] LABS: UCG SCREEN NEGATIVE
[2019-07-12 03:51] VITALS: BP 129/70
[2019-07-12] MEDS: CLONIDINE 0.3MG TABLET PO SCH (06:00)
[2019-07-12] MEDS: HYDRALAZINE HCL 50MG TABLET PO SCH (06:00)
[2019-07-12 06:43] LABS: BASOPHILS % 0.4 % (0.0-2.0); EOSINOPHILS % 1.1 % (0.0-5.0); HEMATOCRIT. 36.6 % (36.0-48.0); HEMOGLOBIN. 12.4 g/dL (12.0-16.0); LYMPHOCYTES % 12.6 % (20.0-50.0); MEAN CORPUSCULAR HEMOGLOBIN 31.7 pg (28.0-32.0); MEAN CORPUSCULAR VOLUME 93.3 fL (81.0-99.0); MEAN PLATELET VOLUME 7.4 fl (7.4-10.4); MONOCYTES % 5.7 % (2.0-8.0); NEUTROPHILS % 80.2 % (40.0-76.0); PLATELET 208 x1000/uL (130-400); RED BLOOD CELL COUNT 3.92 mill/uL (4.2-5.4); RED CELL DISTRIBUTION WIDTH 13.8 % (11.6-14.6)
[2019-07-12] MEDS ORDERED: LEVOTHYROXINE SODIUM 25MCG TABLET PO SCH (07:30)
[2019-07-12 08:00] VITALS: BP 160/98
[2019-07-12] MEDS: CARVEDILOL 12.5MG TABLET PO SCH (08:39)
[2019-07-12] MEDS: CITRIC ACID/SODIUM CITRATE SOLN 15ML UDC PO SCH (08:39)
[2019-07-12] MEDS: LISINOPRIL 20MG TABLET PO SCH (08:40)
[2019-07-12] MEDS: SERTRALINE HCL 50MG TABLET PO SCH (08:40)
[2019-07-12] MEDS: SEVELAMER CARBONATE 800 MG TABLET PO SCH ×2 (08:40→13:39)
[2019-07-12] MEDS: DOCUSATE SODIUM 100MG CAPSULE PO SCH (08:40)
[2019-07-12] MEDS: LEVETIRACETAM 500MG TABLET PO SCH (08:40)
[2019-07-12] MEDS: FUROSEMIDE 20MG TABLET PO SCH (08:40)
[2019-07-12] MEDS: DIVALPROEX SODIUM 500MG DR TABLET PO SCH (08:40)
[2019-07-12] MEDS: AMLODIPINE 5MG TABLET PO SCH (08:41)
[2019-07-12] MEDS ORDERED: ASPIRIN 81MG EC TABLET PO SCH (09:00)
[2019-07-12] MEDS ORDERED: SEVELAMER CARBONATE 800 MG TABLET PO SCH (09:00)
[2019-07-12 12:00] VITALS: BP 112/62
[2019-07-12 12:42] VITALS: BP 112/62
== END 2019-07-12 15:24 | disposition home or self-care (01) | DRG 311 ==
LOC: ER 15:12 → 5EST 17:02 → EDBEDREQ 17:14 → EDBEDREQTM 17:14 → ENRESERV 22:07 → 5EST 07-11 00:18
PROVIDERS: ADMIT Internal Medicine; ATTEND Internal Medicine
PROC: 5A1D70Z Performance of Urinary Filtration, Intermittent, Less than 6 Hours Per Day (ICD-10-PCS; principal; 2019-07-11)
DX: I24.9 Acute ischemic heart disease, unspecified (principal); N18.6 End stage renal disease; Z68.41 Body mass index [BMI] 40.0-44.9, adult; I13.2 Hypertensive heart and chronic kidney disease with heart failure and with stage 5 chronic kidney disease, or end stage renal disease; I50.32 Chronic diastolic (congestive) heart failure; D63.8 Anemia in other chronic diseases classified elsewhere; E83.39 Other disorders of phosphorus metabolism; E03.9 Hypothyroidism, unspecified; E66.9 Obesity, unspecified; E83.41 Hypermagnesemia; F12.90 Cannabis use, unspecified, uncomplicated; J44.9 Chronic obstructive pulmonary disease, unspecified; G40.909 Epilepsy, unspecified, not intractable, without status epilepticus; F20.9 Schizophrenia, unspecified; E78.5 Hyperlipidemia, unspecified; Z99.2 Dependence on renal dialysis; Z91.09 Other allergy status, other than to drugs and biological substances; Z79.84 Long term (current) use of oral hypoglycemic drugs; Z79.899 Other long term (current) drug therapy; Z79.82 Long term (current) use of aspirin; Z72.89 Other problems related to lifestyle; Z86.73 Personal history of transient ischemic attack (TIA), and cerebral infarction without residual deficits; Z79.890 Hormone replacement therapy
CPT/HCPCS: 36415; 71045; 80048; 80053; 80061; 81025; 83735; 83880; 84100; 84443; 84484; 85025; 93005; 93306; 93970; 97161; 99285; J1200; J2405